=== PATIENT | female | born 1965 | race Caucasian/White ===

== ENCOUNTER 2018-11-12 04:14 | Observation (INO) | payer BC ==
--- OUTSIDE RECORDS SUMMARY | 2018-11-12 04:17 | XMS REPORT ---
:1965 Author Organization eClinicalWorks Care Team Providers Name Role Phone German Fox Provider Role Unavailable Allergies No Known Allergies Problems Problem Type Condition Code Onset Dates Condition Status Problem Uncontrolled other specified E13.65 Active diabetes mellitus without complication, unspecified whether nursing home insulin use Problem Nonalcoholic steatohepatitis K75.81 Active Problem Mild intermittent asthma, J45.20 Active unspecified whether complicated Problem Vitamin B12 deficiency E53.8 Active Problem Vitamin D deficiency E55.9 Active Problem Essential hypertension I10 Active Problem Fatigue, unspecified type R53.83 Active Problem Hypothyroidism, unspecified type E03.9 Active Problem Diverticulitis K57.92 Active Problem Mixed hyperlipidemia E78.2 Active Assessment Vitamin B12 deficiency E53.8 Active Assessment Vitamin D deficiency E55.9 Active Assessment Diverticulitis K57.92 Active Assessment Nonalcoholic steatohepatitis K75.81 Active Assessment Mixed hyperlipidemia E78.2 Active Assessment Hypothyroidism, unspecified type E03.9 Active Assessment Fatigue, unspecified type R53.83 Active Assessment Essential hypertension I10 Active Assessment Mild intermittent asthma, J45.20 Active unspecified whether complicated Assessment Uncontrolled other specified E13.65 Active diabetes mellitus without complication, unspecified whether terminal operator insulin use Medications Medication Code Code Instructions Start End Status Dosage System Date Date Glimepiride ND 34316785917 2 MG Orally Inactive 1 tablet Once a day with breakfast or the first main meal of the day Metformin HCl ND 71617638818 1000 MG Orally Active 1 tablet Twice a day with meals Losartan ND 87070973260 100-25 MG Active 1 tablet Potassium-HCTZ Orally Once a day Liothyronine ND 70901721133 5 MCG Orally Active 1 tablet on Sodium Once a day an empty stomach Rosuvastatin ND 56994266132 10 MG Orally Active 1 tablet Calcium Once a day Synthroid ND 03441206330 175 MCG Orally Active 1 tablet on Once a day an empty stomach in the morning Results No Known Results Summary Purpose eClinicalWorks Submission
--- OUTSIDE RECORDS SUMMARY | 2018-11-12 04:17 | XMS REPORT ---
:1965 Author Organization eClinicalWorks Care Team Providers Name Role Phone German Fox Provider Role Unavailable Allergies No Known Allergies Problems Problem Type Condition Code Onset Dates Condition Status Problem Uncontrolled other specified E13.65 Active diabetes mellitus without complication, unspecified whether [facility] insulin use Problem Nonalcoholic steatohepatitis K75.81 Active Problem Mild intermittent asthma, J45.20 Active unspecified whether complicated Problem Vitamin B12 deficiency E53.8 Active Assessment Diverticulitis K57.92 Active Problem Vitamin D deficiency E55.9 Active Problem Essential hypertension I10 Active Problem Fatigue, unspecified type R53.83 Active Problem Hypothyroidism, unspecified type E03.9 Active Problem Diverticulitis K57.92 Active Problem Mixed hyperlipidemia E78.2 Active Assessment Vitamin D deficiency E55.9 Active Assessment Fatigue, unspecified type R53.83 Active Assessment Nonalcoholic steatohepatitis K75.81 Active Assessment Vitamin B12 deficiency E53.8 Active Assessment Hypothyroidism, unspecified type E03.9 Active Assessment Essential hypertension I10 Active Assessment Mild intermittent asthma, J45.20 Active unspecified whether complicated Assessment Uncontrolled other specified E13.65 Active diabetes mellitus without complication, unspecified whether [facility] insulin use Assessment Mixed hyperlipidemia E78.2 Active Medications Medication Code Code Instructions Start End Status Dosage System Date Date Synthroid [facility] 26428248615 150 MCG Orally March 01, Active 1 tablet Once a day 2017 on an empty stomach in the morning Liothyronine [facility] 07305082059 5 MCG Orally Active 1 tablet Sodium Once a day on an empty stomach Metformin HCl ND 61437093274 1000 MG Orally Active 1 tablet Twice a day with meals Losartan ND 48140827107 100-25 MG Active 1 tablet Potassium-HCTZ Orally Once a day Synthroid [facility] 12707896544 175 MCG Orally Inactive 1 tablet Once a day on an empty stomach in the morning Rosuvastatin [facility] 69062250848 10 MG Orally Active 1 tablet Calcium Once a day Results No Known Results Summary Purpose eClinicalWorks Submission
--- OUTSIDE RECORDS SUMMARY | 2018-11-12 04:17 | XMS REPORT ---
:1965 Author Organization eClinicalWorks Care Team Providers Name Role Phone German Fox Provider Role Unavailable Allergies, Adverse Reactions, Alerts Substance Reaction Event Type Phenergan Info Not Available Drug Allergy Problems Problem Type Condition Code Onset Dates Condition Status Problem Uncontrolled other specified E13.65 Active diabetes mellitus without complication, unspecified whether manager intermediate insulin use Problem Nonalcoholic steatohepatitis K75.81 Active [...] Active diabetes mellitus without complication, unspecified whether manager intermediate insulin use Medications Medication Code Code Instructions Start End Status Dosage System Date Date Losartan [facility] 07742119930 100-25 MG Active 1 tablet Potassium-HCTZ Orally Once a day Synthroid ND 29018235951 175 MCG Orally Active 1 tablet on Once a day an empty stomach in the morning Metformin HCl ND 59099426414 1000 MG Orally Active 1 tablet Twice a day with meals Rosuvastatin ND 11428488639 10 MG Orally Active 1 tablet Calcium Once a day Liothyronine ND 15468780940 5 MCG Orally Active 1 tablet on Sodium Once a day an empty stomach Glimepiride ND 73611379492 2 MG Orally Active 1 tablet Once a day with breakfast or the first main meal of the day Results No Known Results Summary Purpose eClinicalWorks Submission
[2018-11-12 05:20] LABS: Absolute Lymphocytes (CBC) 1.3 K/uL (0.7-4.9); Absolute Monocytes 0.6 K/uL (0.1-1.3); Basophils % 0.3 % (0-1.3); Eosinophils % 0.5 % (0-4.4); Lymphocytes % 7.1 % (15.3-44.8); MPV 8.4 fL (7.6-11.3); RBC Red Blood Cell Count 4.57 M/uL (3.86-4.86)
[2018-11-12 05:39] LABS: Albumin 4.2 g/dL (3.4-5.0); Bilirubin Direct 0.1 mg/dL (0-0.2); Bilirubin Total 0.5 mg/dL (0.2-1.0); Potassium 3.5 mmol/L (3.5-5.1); Protein, Total 8.9 g/dL (6.4-8.2)
[2018-11-12] MEDS ORDERED: FENTANYL CITR 100 MCG/2 ML ONE (06:18)
[2018-11-12 06:59] LABS: Urine Blood NEGATIVE (NEG); Urine Glucose NEGATIVE (NEG); Urine Protein 1+ (NEG); Urine Specific Gravity >1.030 (1.005-1.030); Urine pH 5.5 (5.0-7.0)
--- NOTE | 2018-11-12 07:07 | EDPHYS ---
Physician Documentation [facility] Name: Jane Taylor Age: 53 yrs Sex: Female : 1965 Arrival Date: 11/12/2018 Time: 04:24 Bed 13 Private MD: Jonathan Ortiz ED Physician Shawn Burton HPI: 11/12 20:20 This 53 yrs old Female presents to ER via Ambulatory with complaints of Back gs Pain. 20:20 The patient presents with pain that is acute. The symptoms are located in the low back. gs Onset: The symptoms/episode began/occurred 1 week(s) ago, and became persistent. The pain radiates to the abdomen. Associated signs and symptoms: Pertinent positives: vomiting. Modifying factors: The patient symptoms are alleviated by nothing, the patient symptoms are aggravated by movement. Severity of symptoms: At their worst the symptoms were severe, in the emergency department the symptoms are unchanged. The patient has experienced similar episodes in the past, a few times. The patient has not recently seen a physician. 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 jb4 Historical: - Allergies: 04:24 IV contrast; jb4 04:24 Phenergan; jb4 - Home Meds: 04:24 atorvastatin 10 mg Oral tab 1 tab once daily [Active]; glimepiride 1 mg Oral tab 1 tab jb4 BID [Active]; liothyronine 5 mcg Oral tab 2 tabs once daily [Active]; losartan-hydrochlorothiazide 100-25 mg Oral tab 1 tab once daily [Active]; metformin 1,000 mg Oral tr24 1 tab once daily [Active]; Ventolin HFA 90 mcg/actuation Nebulizer HFAA [Active]; Synthroid 175 mcg Oral tab 1 tab once daily [Active]; OTC Diuretic [Active]; - PMHx: 04:24 Asthma; Cirrhosis; Diabetes - NIDDM; Diverticulitis; Hypertension; Hypothyroidism; jb4 - PSHx: 04:24 Cholecystectomy; jb4 - Immunization history:: Adult Immunizations up to date. - Social history:: Smoking status: Patient/guardian denies using tobacco, Patient/guardian denies using alcohol. - Ebola Screening: : No symptoms or risks identified at this time. ROS: 20:20 All other systems are negative. gs Exam: 20:20 Head/Face: Normocephalic, atraumatic. Eyes: Pupils equal round and reactive to light, gs extra-ocular motions intact. Lids and lashes normal. Conjunctiva and sclera are non-icteric and not injected. Cornea within normal limits. Periorbital areas with no swelling, redness, or edema. ENT: Nares patent. No nasal discharge, no septal abnormalities noted. Tympanic membranes are normal and external auditory canals are clear. Oropharynx with no redness, swelling, or masses, exudates, or evidence of obstruction, uvula midline. Mucous membranes moist. Neck: Trachea midline, no thyromegaly or masses palpated, and no cervical lymphadenopathy. Supple, full range of motion without nuchal rigidity, or vertebral point tenderness. No Meningismus. Chest/axilla: Normal chest wall appearance and motion. Nontender with no deformity. No lesions are appreciated. Cardiovascular: Regular rate and rhythm with a normal S1 and S2. No gallops, murmurs, or rubs. Normal PMI, no JVD. No pulse deficits. Respiratory: Lungs have equal breath sounds bilaterally, clear to auscultation and percussion. No rales, rhonchi or wheezes noted. No increased work of breathing, no retractions or nasal flaring. Back: No spinal tenderness. No costovertebral tenderness. Full range of motion. Skin: Warm, dry with normal turgor. Normal color with no rashes, no lesions, and no evidence of cellulitis. MS/ Extremity: Pulses equal, no cyanosis. Neurovascular intact. Full, normal range of motion. Neuro: Awake and alert, GCS 15, oriented to person, place, time, and situation. Cranial nerves II-XII grossly intact. Motor strength 5/5 in all extremities. Sensory grossly intact. Cerebellar exam normal. Normal gait. 20:20 Constitutional: The patient appears alert, awake, uncomfortable. 20:20 Abdomen/GI: Palpation: moderate abdominal tenderness, in the suprapubic area, right lower quadrant and left lower quadrant. 20:20 Back: CVA tenderness, that is moderate, is noted bilaterally. Vital Signs: 04:24 BP 126 / 76; Pulse 90; Resp 16; Temp 98.0(O); Pulse Ox 100% on R/A; Weight 102.97 kg; jb4 Height 5 ft. 7 in. (170.18 cm) (R); Pain 10/10; 05:00 BP 111 / 72; Pulse 79; Resp 16; Pulse Ox 100% on R/A; jb4 06:00 BP 114 / 63; Pulse 81; Resp 16; Pulse Ox 98% on R/A; jb4 06:50 BP 131 / 75; Pulse 75; Resp 16; Pulse Ox 99% on R/A; Pain 0/10; jb4 07:22 BP 122 / 69; Pulse 68; Resp 16 S; Pulse Ox 97% on R/A; Pain 0/10; jl7 09:00 BP 128 / 71; Pulse 65; Resp 16 S; Pulse Ox 97% on R/A; jl7 04:24 Body Mass Index 35.55 (102.97 kg, 170.18 cm) jb4 MDM: 04:42 Patient medically screened. 20:20 Differential diagnosis: Abdominal Aortic Aneurysm Peptic Ulcer Pyelonephritis gs pancreatitis. Data reviewed: vital signs, nurses notes, lab test result(s), EKG, radiologic studies. Response to treatment: the patient's symptoms have mildly improved after treatment, pt states still not feeling well would feel more comfortable being placed in obs getting tests and pain medication discussed with hospitalist. 11/12 04:44 Order name: Basic Metabolic Panel; Complete Time: 05:56 11/12 04:44 Order name: CBC with Diff 11/12 04:44 Order name: Hepatic Function; Complete Time: 05:56 11/12 04:44 Order name: Lipase; Complete Time: 05:56 11/12 05:57 Order name: Urine Microscopic Only 11/12 06:33 Order name: CBC Smear Scan [facility] 11/12 04:44 Order name: IV Saline Lock; Complete Time: 05:14 11/12 04:44 Order name: Labs collected and sent; Complete Time: 05:14 11/12 04:45 Order name: CT Stone Protocol 11/12 06:54 Order name: Urine Dipstick--Ancillary (enter results); Complete Time: 07:06 [facility] 11/12 06:54 Order name: Urine --Ancillary (enter results); Complete Time: 07:06 [facility] 11/12 08:26 Order name: EKG Electrocardiogram [facility] 11/12 04:45 Order name: EKG - Nurse/Tech; Complete Time: 05:14 11/12 05:57 Order name: Urine Dipstick-Ancillary (obtain specimen); Complete Time: 06:58 gs Administered Medications: 06:14 Drug: fentaNYL (PF) 50 mcg Route: IVP; Site: left antecubital; jb4 07:21 Follow up: Response: No adverse reaction; Pain is decreased jl7 07:21 Drug: NS 0.9% 1000 ml Route: IV; Rate: 125 ml/hr; Site: left antecubital; 7 09:50 Follow up: IV Status: Infusion continued upon admission jl7 Disposition: 11/12/18 07:06 Hospitalization ordered by Alanis Fox for Observation. Preliminary diagnosis is Generalized abdominal pain. - Bed requested for Telemetry/MedSurg (observation). - Status is Observation. jl7 - Condition is Stable. - Problem is new. - Symptoms are unchanged. UTI on Admission? No Signatures: Dispatcher [employer] EDMS Kristian Rivas RN RN jb4 Luz Maria Nolan RN RN jl7 Inessa Nixon RN RN df Shawn Burton MD MD Corrections: (The following items were deleted from the chart) 09:16 07:06 Hospitalization Ordered by Alanis Fox MD for Observation. Preliminary df diagnosis is Generalized abdominal pain. Bed requested for Telemetry/MedSurg (observation). Status is Observation. Condition is Stable. Problem is new. Symptoms are unchanged. UTI on Admission? No. gs 09:49 09:16 11/12/2018 07:06 Hospitalization Ordered by Alanis Fox MD for Observation. jl7 Preliminary diagnosis is Generalized abdominal pain. Bed requested for Telemetry/MedSurg (observation). Status is Observation. Condition is Stable. Problem is new. Symptoms are unchanged. UTI on Admission? No. df
--- NOTE | 2018-11-12 07:07 | ER ---
Nurse's Notes [facility] Name: Jane Taylor Age: 53 yrs Sex: Female : 1965 Arrival Date: 11/12/2018 Time: 04:24 Bed 13 Private MD: Jonathan Ortiz Diagnosis: Generalized abdominal pain Presentation: 11/12 04:24 Presenting complaint: Patient states: I am having lower back pain that started 2 or 3 jb4 days ago. 04:24 Transition of care: patient was not received from another setting of care. Onset of jb4 symptoms was November 08, 2018. Risk Assessment: Do you want to hurt yourself or someone else? Patient reports no desire to harm self or others. Initial Sepsis Screen: Does the patient meet any 2 criteria? No. Patient's initial sepsis screen is negative. Does the patient have a suspected source of infection? No. Patient's initial sepsis screen is negative. Care prior to arrival: None. 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 jb4 Historical: - Allergies: 04:24 IV contrast; jb4 04:24 Phenergan; jb4 - Home Meds: 04:24 atorvastatin 10 mg Oral tab 1 tab once daily [Active]; glimepiride 1 mg Oral tab 1 tab jb4 BID [Active]; liothyronine 5 mcg Oral tab 2 tabs once daily [Active]; losartan-hydrochlorothiazide 100-25 mg Oral tab 1 tab once daily [Active]; metformin 1,000 mg Oral tr24 1 tab once daily [Active]; Ventolin HFA 90 mcg/actuation Nebulizer HFAA [Active]; Synthroid 175 mcg Oral tab 1 tab once daily [Active]; OTC Diuretic [Active]; - PMHx: 04:24 Asthma; Cirrhosis; Diabetes - NIDDM; Diverticulitis; Hypertension; Hypothyroidism; jb4 - PSHx: 04:24 Cholecystectomy; jb4 - Immunization history:: Adult Immunizations up to date. - Social history:: Smoking status: Patient/guardian denies using tobacco, Patient/guardian denies using alcohol. - Ebola Screening: : No symptoms or risks identified at this time. Screenin:24 Abuse screen: Denies threats or abuse. Nutritional screening: No deficits noted. jb4 Tuberculosis screening: No symptoms or risk factors identified. Fall Risk IV access (20 points). Total House Fall Scale indicates No Risk (0-24 pts). Assessment: 04:24 General: Appears in no apparent distress. uncomfortable, Behavior is calm, cooperative, jb4 appropriate for age. Pain: Complains of pain in low back area Pain radiates to posterior aspect of right lateral abdomen, anterior aspect of right lateral abdomen, posterior aspect of left lateral abdomen, anterior aspect of left lateral abdomen, right lower quadrant and left lower quadrant Pain currently is 10 out of 10 on a pain scale. Quality of pain is described as strong continuous pain. Pain began 2-3 days ago. Is continuous. Neuro: Level of Consciousness is awake, alert, obeys commands, Oriented to person, place, time, situation. Cardiovascular: Patient's skin is warm and dry. Respiratory: Airway is patent Respiratory effort is even, unlabored, Respiratory pattern is regular, symmetrical. GI: No signs and/or symptoms were reported involving the gastrointestinal system. : No signs and/or symptoms were reported regarding the genitourinary system. EENT: No signs and/or symptoms were reported regarding the EENT system. Derm: Skin is intact, Skin is pink, warm \T\ dry. Musculoskeletal: Circulation, motion, and sensation intact. 05:15 Reassessment: Pt to CT. jb4 06:00 Reassessment: Patient appears in no apparent distress at this time. Patient and/or jb4 family updated on plan of care and expected duration. Pain level reassessed. Patient is alert, oriented x 3, equal unlabored respirations, skin warm/dry/pink. Patient denies pain at this time. 06:50 Reassessment: Patient appears in no apparent distress at this time. Patient and/or jb4 family updated on plan of care and expected duration. Pain level reassessed. Patient is alert, oriented x 3, equal unlabored respirations, skin warm/dry/pink. Bladder scan shows 43ml of urine in bladder. Patient states feeling better. 07:22 Reassessment: Patient appears in no apparent distress at this time. No changes from jl7 previously documented assessment. Patient and/or family updated on plan of care and expected duration. Pain level reassessed. Patient is alert, oriented x 3, equal unlabored respirations, skin warm/dry/pink. 08:10 Reassessment: Pt c/o increased abdominal pain, Called Dr. Fox and left a message, pt jl7 updated. Vital Signs: 04:24 BP 126 / 76; Pulse 90; Resp 16; Temp 98.0(O); Pulse Ox 100% on R/A; Weight 102.97 kg; jb4 Height 5 ft. 7 in. (170.18 cm) (R); Pain 10/10; 05:00 BP 111 / 72; Pulse 79; Resp 16; Pulse Ox 100% on R/A; jb4 06:00 BP 114 / 63; Pulse 81; Resp 16; Pulse Ox 98% on R/A; jb4 06:50 BP 131 / 75; Pulse 75; Resp 16; Pulse Ox 99% on R/A; Pain 0/10; jb4 07:22 BP 122 / 69; Pulse 68; Resp 16 S; Pulse Ox 97% on R/A; Pain 0/10; jl7 09:00 BP 128 / 71; Pulse 65; Resp 16 S; Pulse Ox 97% on R/A; jl7 04:24 Body Mass Index 35.55 (102.97 kg, 170.18 cm) jb4 ED Course: 04:24 Patient arrived in ED. es 04:24 Kristian Rivas, RN is Primary Nurse. jb4 04:24 Jonathan Ortiz MD is Private Physician. es 04:24 Arm band placed on left wrist. jb4 04:24 Patient has correct armband on for positive identification. Placed in gown. Bed in low jb4 position. Call light in reach. Side rails up X 1. Pulse ox on. NIBP on. 04:28 Shawn Burton MD is Attending Physician. gs 04:29 Triage completed. jb4 05:10 Radiology exam delayed due to IV insertion attempt and/or patient not having kw1 appropriate IV at this time. 05:10 Initial lab(s) drawn, by me, sent to lab. EKG done. Inserted saline lock: 20 gauge in jb4 left antecubital area, using aseptic technique. Blood collected. 05:47 CT Stone Protocol In Process Unspecified. EDMS 07:05 Alanis Fox MD is Hospitalizing Provider. gs 09:48 No provider procedures requiring assistance completed. Patient admitted, IV remains in jl7 place. intact, No redness/swelling at site. Administered Medications: 06:14 Drug: fentaNYL (PF) 50 mcg Route: IVP; Site: left antecubital; [facility] 07:21 Follow up: Response: No adverse reaction; Pain is decreased [facility] 07:21 Drug: NS 0.9% 1000 ml Route: IV; Rate: 125 ml/hr; Site: left antecubital; 7 09:50 Follow up: IV Status: Infusion continued upon admission [facility] Outcome: 07:06 Decision to Hospitalize by Provider. 09:48 Admitted to Tele accompanied by tech, family with patient, via wheelchair, room 216, [facility] with chart, Report called to floor RN 09:48 Condition: stable 09:48 Discharge instructions given to patient, family, Instructed on the need for admit, Demonstrated understanding of instructions. 09:49 Patient left the ED. 7 Signatures: Dispatcher [employer] Brittnee Escamilla James, RN RN jb4 Luz Maria Nolan RN RN jl7 Shawn Burton MD MD Denise Bernard kw1
[2018-11-12 07:09] LABS: Urine Bacteria <20 /HPF (<20); Urine RBC NONE SEEN /HPF (NONE SEEN)
[2018-11-12 07:10] LABS: Urine Amorphous Sediment 2+ /HPF (NONE SEEN); Urine Culture Reflex Order NOT NEEDED
[2018-11-12] MEDS ORDERED: NA CHLORIDE 0.9% 1,000 ML ONE (07:29)
[2018-11-12 07:30] LABS: Blood Morphology Comment NOT SEEN (NOT SEEN); Platelet Estimate ADEQ; Urine White Blood Cell Casts OK
[2018-11-12 09:57] VITALS: BMI 36.8
[2018-11-12] MEDS ORDERED: ONDANSETRON 4 MG/2 ML VIAL IV PRN (10:02)
--- NOTE | 2018-11-12 10:43 | RAD REPORT ---
EXAM DESCRIPTION: CT - Stone Protocol - 11/12/2018 6:09 am CLINICAL HISTORY: 53-year-old female with back pain TECHNIQUE: Axial CT imaging of the abdomen and pelvis was performed. Sagittal and coronal reconstr ucted images were then performed. The CT study is performed according to ALARA (as low as reasonably achievable) or ALARA/IMAGE GENTLY, with automatic adjustment of mA and/or kV according to patient siz guillermo. Performed on: 11/12/2018 at 5:23 AM Comparison: Prior study performed on 07/19/2017. FINDINGS: Lung bases: The lung bases are clear. Liver: The liver is enlarged and measures 23 cm in craniocaudal dimension. No focal hepatic abnormali ties are appreciated on this unenhanced scan. There is diffusely decreased attenuation of the liver c ommonly due to fatty infiltration. Spleen: The spleen is normal is size, configuration and attenuation. No focal splenic abnormalities a re appreciated on this unenhanced scan. Gallbladder and bile duct: The gallbladder is surgically absent. There is no biliary ductal dilatat ion. Pancreas: The pancreas is grossly normal in size and configuration. Adrenal Glands: The adrenal glands are normal in size and configuration. Kidneys: The kidneys are normal in size and configuration. There is no evidence of hydronephrosis. Th ere is no evidence of nephrolithiasis. No focal renal abnormalities are identified. Stomach: The stomach is grossly normal. There is a very small hiatal hernia. Bowel: The bowel gas pattern is non specific and non obstructive. There is occasional colonic diverti culosis. Appendix: The appendix is normal. Free air: There is no evidence of free air. Free fluid: There is no evidence of free fluid. Vasculature: The aorta is normal in caliber and contour. The inferior vena cava is grossly unremarkab le. Lymphadenopathy: No pathologic lymphadenopathy is identified. Bladder: The bladder is incompletely distended on this examination. Reproductive: The uterus is grossly within normal limits. Bones: No acute osseous abnormalities are identified. Soft tissues: No focal soft tissue abnormalities are identified. IMPRESSION: 1. No evidence of acute intra-abdominal or intrapelvic pathology. There is no urinary tr act calcification or obstruction.. 2. Occasional colonic diverticulosis without evidence of diverticulitis. 3. Normal CT of the appendix. 4. Remote cholecystectomy. 5. Hepatomegaly and fatty infiltration of the liver. 6. Small hiatal hernia. Electronically signed by: Alison Mcneal DO 11/12/2018 6:04 AM CDT Due to temporary technical issues with the PACS/Fluency reporting system, reports are being signed by the in house radiologist as a courtesy to ensure prompt reporting. The interpreting radiologist is f ully responsible for the content of the report.
[2018-11-12] MEDS: INSULIN -REGULAR HUMAN 50 UNIT/0.5 ML ML SQ SCH ×3 (11:30→21:00)
[2018-11-12] MEDS: ALBUTEROL 2.5 MG/3 ML NEB SOL NEB SCH ×2 (13:30→19:47)
[2018-11-12] MEDS: FENTANYL CITR 100 MCG/2 ML IV PRN (18:19)
[2018-11-12] MEDS: ATORVASTATIN 10 MG TAB PO SCH (21:13)
--- NOTE | 2018-11-12 23:00 | HP ---
Date of Admission: 11/12/2018 Primary Care Physician: Dr. Fox. Chief Complaint: Abdominal pain. History Of Present Illness: The patient is a 53-year-old female with past medical history of fatty l iver disease, diabetes, hypertension, generalized anxiety disorder, obesity. The patient had been in her usual state of health until 2 days prior to admission when the patient started having sudden ons et of back pain radiating to the abdomen along with some nausea, but no vomiting. The patient also r eports some generalized swelling and edema. The patient states that she is compliant with her medica tions as well as her sodium and fluid-restricted diet. The patient denies any ill contacts. No feve rs or chills. No chest pain or palpitations. The patient's symptoms are constant, moderate, progres sively worsening. The patient came into the ER for further evaluation of her symptoms. Her vital si gns were stable. Her workup showed a white count of 19,000. She did not appear septic. There was n o clear source of infection. Her UA was negative. CT scan of the abdomen did not show any acute rajat nges. The patient was then referred for admission. When seen in the ER, she was awake, alert, orien anthony x3, in some mild distress. Past Medical History: Hypertension, hyperlipidemia, generalized anxiety disorder, diverticulosis, an d fatty liver disease, obesity. Surgical History: Cataract surgery and cholecystectomy. Allergies: THE PATIENT IS ALLERGIC TO PROMETHAZINE. Medications: List reviewed. Family History: Coronary artery disease, hypertension, diabetes in both parents. Pancreatic cancer also runs in the family. Mother also had congestive heart failure and renal disease. Social History: The patient is a former smoker, quit several years ago. Drinks alcohol occasionally . Works 2 jobs, , independent in her activities of daily living. Review of Systems: An 11-point system reviewed, negative except as per HPI. Physical Examination: Vital Signs: Temperature 98, heart rate 90, blood pressure 126/76, respirations 16, O2 100% on room air. General: Awake, alert, oriented x3, in some mild distress. Ill-appearing female, obese, BMI 36.9. HEENT: Normocephalic, atraumatic. PERRLA. EOMI. Moist mucous membranes. Oropharynx is clear. Co njunctivae are anicteric. Neck: Supple. No JVD. Trachea midline. CV: S1, S2. Regular rate and rhythm. Peripheral pulses present. Respiratory: Moving air well bilaterally. No wheezing or stridor. No use of accessory muscles. Gastrointestinal: Abdomen is soft. Mild distention. No ascites. No tenderness to palpation. Vandana l sounds positive. The patient does have some left costovertebral angle tenderness. Extremities: No clubbing, cyanosis. The patient has some pedal edema. Neuro: Cranial nerves 2-12 intact grossly. No focal neurological deficit. Speech is normal. Skin: No rashes. Normal skin turgor. Laboratory Data: UA is negative. WBC 19.1, H and H 14.2 and 42, platelets 318, neutrophils 89%. So dium 138, potassium 3.5, chloride 103, CO2 27, BUN 13, creatinine 1.13, glucose 153, calcium 9, lipas e 82. CT scan of the abdomen and pelvis shows some diverticulosis, but no diverticulitis. No eviden ce of acute intra-abdominal, intrapelvic pathology. No urinary tract calcification or obstruction. Normal CT of the appendix. Remote cholecystectomy, hepatomegaly, and fatty infiltration of the liver . Small hiatal hernia. Assessment And Plan: A 53-year-old female with: 1.Acute generalized abdominal pain radiating to the back, unclear etiology. CT scan does not show a ny stones. May be related to mild distention from ascites. We will continue on pain medications, sy mptomatic treatment. Lipase is also normal. No diverticulitis seen on CT scan. No blood in the sto ol. 2.Fatty liver disease. We will continue with sodium and fluid restriction. 3.Mixed hyperlipidemia, on statin. 4.Essential hypertension, stable. We will resume home medications. 5.Diabetes mellitus type 2, non-insulin requiring. We will continue sliding scale insulin and monit or Accu-Cheks. 6.Obesity, BMI 36.9, counseled. 7.Neutrophilic leukocytosis, unclear etiology. We will monitor. No indications for antibiotics at this time. We will start on Lovenox for DVT prophylaxis. Admit to med/surg and place as observation. /GA Voice ID: [id number]
[2018-11-13] MEDS: ALBUTEROL 2.5 MG/3 ML NEB SOL NEB SCH ×4 (01:30→20:00)
[2018-11-13] MEDS: FENTANYL CITR 100 MCG/2 ML IV PRN ×2 (02:41→18:18)
[2018-11-13] MEDS: LEVOTHYROXINE SOD 0.05 MG TABLET PO SCH (06:07)
[2018-11-13 07:02] LABS: Absolute Lymphocytes (CBC) 2.3 K/uL (0.7-4.9); Absolute Monocytes 0.2 K/uL (0.1-1.3); Basophils % 0.7 % (0-1.3); Eosinophils % 1.3 % (0-4.4); Hematocrit 37.9 % (36.0-45.0); Lymphocytes % 26.4 % (15.3-44.8); MPV 8.3 fL (7.6-11.3); Monocytes % 2.8 % (3.3-12.3); RBC Red Blood Cell Count 4.06 M/uL (3.86-4.86)
[2018-11-13 07:19] LABS: Albumin 3.7 g/dL (3.4-5.0); Bilirubin Total 0.4 mg/dL (0.2-1.0); Potassium 3.3 mmol/L (3.5-5.1); Protein, Total 7.8 g/dL (6.4-8.2)
[2018-11-13] MEDS: INSULIN -REGULAR HUMAN 50 UNIT/0.5 ML ML SQ SCH ×4 (07:30→20:46)
[2018-11-13] MEDS: LOSARTAN/HCTZ 50-12.5 PO SCH (08:42)
--- NOTE | 2018-11-13 11:34 | EKG ---
Test Date: 2018-11-12 Test Time: 05:03:51 Assistant Merchandiser: AYDEN MEASUREMENT RESULTS: Intervals: Rate: 82 OK: 152 QRSD: 80 QT: 402 QTc: 469 [place]: P: 69 OK: 152 QRS: 44 T: 58 INTERPRETIVE STATEMENTS: Normal sinus rhythm Low voltage QRS Nonspecific ST and T wave abnormality Prolonged QT Abnormal ECG Compared to ECG 08/03/2011 07:35:55 Low QRS voltage now present ST (T wave) deviation now present Prolonged QT interval now present Electronically Signed On 11-12-18 10:48:10 CDT by Sj Russell
--- NOTE | 2018-11-13 18:21 | P.PN ---
Subjective Date of Service: 11/13/18 Patient seen and examined at bedside, No family at bedside. Chart reviewed, case discussed with nursing staff. Patient improving - reports better abdominal pain Review of Systems 10-point ROS is otherwise unremarkable Physical Examination - Vital Signs Temperature: 97.2 F Blood Pressure: 100/53 Pulse: 62 Respirations: 18 Pulse Ox (%): 95 - Physical Exam General: Alert, In no apparent distress, Oriented x3 HEENT: Atraumatic, PERRLA, EOMI Neck: Supple, JVD not distended Respiratory: Clear to auscultation bilaterally, Normal air movement Cardiovascular: Regular rate/rhythm, Normal S1 S2 Gastrointestinal: Normal bowel sounds, No tenderness Musculoskeletal: No tenderness Integumentary: No rashes Neurological: Normal speech, Normal tone, Normal affect Lymphatics: No axilla or inguinal lymphadenopathy Assessment And Plan - Plan A 53-year-old female with: Acute generalized abdominal pain radiating to the back, unclear etiology. CT scan does not show any stones. May be related to mild distention from ascites. We will continue on pain medications, symptomatic treatment. Lipase is also normal. No diverticulitis seen on CT scan. No blood in the stool. Improving symptoms. Fatty liver disease. We will continue with sodium and fluid restriction. Mixed hyperlipidemia Continue statin. Essential hypertension, stable. We will resume home medications. Diabetes mellitus type 2, non-insulin requiring. We will continue sliding scale insulin and monitor Accu-Cheks. Obesity, BMI 36.9, counseled. Neutrophilic leukocytosis, unclear etiology. We will monitor. No indications for antibiotics at this time. DVT prophylaxis: Lovenox Disposition: Continue symptomatic management.
[2018-11-13] MEDS: ATORVASTATIN 10 MG TAB PO SCH (20:46)
[2018-11-14] MEDS: ALBUTEROL 2.5 MG/3 ML NEB SOL NEB SCH ×4 (02:00→20:00)
[2018-11-14] MEDS: FENTANYL CITR 100 MCG/2 ML IV PRN ×2 (02:02→05:58)
[2018-11-14] MEDS: LEVOTHYROXINE SOD 0.05 MG TABLET PO SCH (05:33)
[2018-11-14 05:57] LABS: Absolute Lymphocytes (CBC) 2.2 K/uL (0.7-4.9); Absolute Monocytes 0.4 K/uL (0.1-1.3); Absolute Neutrophil 5.1 K/uL (1.8-8.0); Basophils % 0.8 % (0-1.3); Eosinophils % 1.4 % (0-4.4); Lymphocytes % 27.9 % (15.3-44.8); MPV 8.3 fL (7.6-11.3); Monocytes % 4.7 % (3.3-12.3); RBC Red Blood Cell Count 4.21 M/uL (3.86-4.86)
[2018-11-14 06:06] LABS: Albumin 3.7 g/dL (3.4-5.0); Bilirubin Total 0.4 mg/dL (0.2-1.0); Potassium 3.3 mmol/L (3.5-5.1); Protein, Total 7.9 g/dL (6.4-8.2)
[2018-11-14] MEDS: INSULIN -REGULAR HUMAN 50 UNIT/0.5 ML ML SQ SCH ×4 (07:30→21:00)
[2018-11-14] MEDS: LOSARTAN/HCTZ 50-12.5 PO SCH (09:24)
[2018-11-14 13:34] LABS: Urine Appearance CLEAR; Urine Bilirubin NEGATIVE (NEG); Urine Blood NEGATIVE (NEG); Urine Color YELLOW; Urine Glucose NEGATIVE (NEG); Urine Protein NEGATIVE (NEG); Urine Specific Gravity 1.025 (1.005-1.030)
[2018-11-14 13:36] LABS: Urine Microscopic Reflex ORDER UMIC
[2018-11-14 13:44] LABS: Urine Bacteria >50 /HPF (<20); Urine RBC <5 /HPF (NONE SEEN)
[2018-11-14 13:45] LABS: Urine Culture Reflex Order NOT NEEDED; Urine Mucus LIGHT /HPF (NONE SEEN)
[2018-11-14] MEDS ORDERED: D50W 25 GM/50 ML SYRINGE IV PRN (16:22)
[2018-11-14] MEDS ORDERED: GLUCAGON 1 MG/VIAL IM PRN (16:22)
[2018-11-14] MEDS: DOCUSATE NA 100 MG CAP PO PRN (16:47)
--- NOTE | 2018-11-14 18:40 | P.PN ---
Subjective Date of Service: 11/14/18 Subjective: Improving Patient seen and examined at bedside, No family at bedside. Chart reviewed, case discussed with nursing staff. Patient improving - reports better abdominal pain Review of Systems 10-point ROS is otherwise unremarkable Physical Examination - Vital Signs Temperature: 97.7 F Blood Pressure: 108/59 Pulse: 70 Respirations: 16 Pulse Ox (%): 97 - Physical Exam General: Alert, In no apparent distress HEENT: Atraumatic, PERRLA, EOMI Neck: Supple, JVD not distended Respiratory: Clear to auscultation bilaterally, Normal air movement Cardiovascular: Regular rate/rhythm, Normal S1 S2 Gastrointestinal: Normal bowel sounds, No tenderness Musculoskeletal: No tenderness Integumentary: No rashes Neurological: Normal speech, Normal tone, Normal affect Lymphatics: No axilla or inguinal lymphadenopathy Assessment And Plan - Plan A 53-year-old female with: Acute generalized abdominal pain radiating to the back, unclear etiology. CT scan does not show any stones. May be related to mild distention from ascites. We will continue on pain medications, symptomatic treatment. Lipase is also normal. No diverticulitis seen on CT scan. No blood in the stool. Improving symptoms. Fatty liver disease. We will continue with sodium and fluid restriction. Mixed hyperlipidemia Continue statin. Essential hypertension, stable. We will resume home medications. Diabetes mellitus type 2, non-insulin requiring. We will continue sliding scale insulin and monitor Accu-Cheks. Obesity, BMI 36.9, counseled. Neutrophilic leukocytosis, unclear etiology. We will monitor. No indications for antibiotics at this time. DVT prophylaxis: Lovenox Disposition: Continue symptomatic management. Encouraged ambulation. Discontinue IV pain medications as this could also cause constipation. Pending symptomatic improvement
[2018-11-14] MEDS: ATORVASTATIN 10 MG TAB PO SCH (21:51)
[2018-11-15] MEDS: ALBUTEROL 2.5 MG/3 ML NEB SOL NEB SCH ×3 (02:00→13:52)
[2018-11-15 05:37] LABS: Absolute Lymphocytes (CBC) 2.1 K/uL (0.7-4.9); Absolute Monocytes 0.4 K/uL (0.1-1.3); Absolute Neutrophil 6.2 K/uL (1.8-8.0); Eosinophils % 1.7 % (0-4.4); Hematocrit 38.8 % (36.0-45.0); MPV 8.4 fL (7.6-11.3); Monocytes % 4.4 % (3.3-12.3); RBC Red Blood Cell Count 4.17 M/uL (3.86-4.86)
[2018-11-15 05:54] LABS: Albumin 3.8 g/dL (3.4-5.0); Bilirubin Total 0.4 mg/dL (0.2-1.0); Potassium 3.2 mmol/L (3.5-5.1); Protein, Total 8.1 g/dL (6.4-8.2)
[2018-11-15] MEDS: DOCUSATE NA 100 MG CAP PO PRN (06:35)
[2018-11-15] MEDS: LEVOTHYROXINE SOD 0.05 MG TABLET PO SCH (06:35)
[2018-11-15] MEDS: INSULIN -REGULAR HUMAN 50 UNIT/0.5 ML ML SQ SCH ×2 (07:30→11:30)
[2018-11-15 09:03] VITALS: BP 109/62; TEMP 97.6
[2018-11-15] MEDS: LOSARTAN/HCTZ 50-12.5 PO SCH (09:31)
[2018-11-15 10:56] VITALS: O2SAT 95
[2018-11-15] MEDS ORDERED: POTASSIUM CL SA 10 MEQ TAB PO ONE (10:58)
--- NOTE | 2018-11-15 12:09 | P.SSS ---
Patient History Date of Service: 11/15/18 Primary Care Provider: Dr. Ortiz Reason for admission: Abdominal pain History of Present Illness: The patient is a 53-year-old female with past medical history of fatty liver disease, diabetes, hypertension, generalized anxiety disorder, obesity. The patient had been in her usual state of health until 2 days prior to admission when the patient started having sudden onset of back pain radiating to the abdomen along with some nausea, but no vomiting. The patient also reports some generalized swelling and edema. The patient states that she is compliant with her medications as well as her sodium and fluid-restricted diet. The patient denies any ill contacts. No fevers or chills. No chest pain or palpitations. The patient's symptoms are constant, moderate, progressively worsening. The patient came into the ER for further evaluation of her symptoms. Her vital signs were stable. Her workup showed a white count of 19,000. She did not appear septic. There was no clear source of infection. Her UA was negative. CT scan of the abdomen did not show any acute changes. The patient was then referred for admission. When seen in the ER, she was awake, alert, oriented x3 , in some mild distress. Allergies promethazine HCl [From Phenergan] Allergy (Intermediate, Verified 11/12/18 10:24 ) forgetfulness IV contrast Allergy (Uncoded 11/12/18 10:24) Hives Home Medications: Atorvastatin Calcium [Lipitor] 10 mg PO DAILY 04/22/14 Levothyroxine [Synthroid] 50 mcg PO DAILY 04/22/14 Losartan/Hydrochlorothiazide [Losartan-Hctz 100-25 mg Tab] 1 each PO DAILY 04/22 Albuterol Inhaler [Ventolin Inhaler] 2 puff IH Q6H PRN 11/12/18 Metformin HCl [Glucophage] 500 mg PO BIDWM 11/12/18 - Past Medical/Surgical History Has patient received pneumonia vaccine in the past: Yes Diabetic: Yes -: high cholesterol -: asthma -: COPD -: hypertension -: non-alcoholic liver cirrhosis -: hypothyroidism -: cataract surgery -: cholecystectomy - Social History Smoking Status: Former smoker Alcohol use: No CD- Drugs: No Caffeine use: Yes Place of Residence: Home Review of Systems 10-point ROS is otherwise unremarkable Physical Examination - Vital Signs Temperature: 97.6 F Blood Pressure: 109/62 Pulse: 66 Respirations: 20 Pulse Ox (%): 95 - Physical Exam General: Alert, In no apparent distress, Oriented x3, Obese HEENT: Atraumatic, PERRLA, Mucous membr. moist/pink, EOMI, Sclerae nonicteric Neck: Supple, 2+ carotid pulse no bruit, No LAD, Without JVD or thyroid abnormality Respiratory: Clear to auscultation bilaterally, Normal air movement Cardiovascular: Regular rate/rhythm, Normal S1 S2 Gastrointestinal: Normal bowel sounds, No tenderness Musculoskeletal: No tenderness Integumentary: No rashes Neurological: Normal gait, Normal speech, Normal strength at 5/5 x4 extr, Normal tone, Normal affect Lymphatics: No axilla or inguinal lymphadenopathy Treatment Summary: Patient was admitted for acute generalized abdominal pain that was radiating to her back. CT scan did not show any stones or any acute abnormality. Patient does have a history of fatty liver disease that she sees a childcare attendant for. Her LFTs were slightly elevated. This abdominal pain may have been related to mild distention from ascites. She was started on pain medications and provide symptomatic treatment. Her lipase remained normal. She was given IV fluids. She was encouraged ambulation and she was given Colace to help with bowel movements. She did have 1 small bowel movement prior to discharge. Her IV pain medications were also discontinued due to constipation. Prior to discharge , she was symptom-free, tolerating a regular diet, ambulating without any problems. During the hospitalization, she did complain regarding foul order in her urine. Urinalysis was done but the urine sample seemed to be dirty. But because she is symptomatic, we will go ahead and treat with a 3 day course of Bactrim. She was recommended to follow up with , her childcare attendant for outpatient management. She states that she has not seen him in a few years now. Recommended to avoid hepatotoxic medications or any other kyco-rhb-gwboyna medications at this time. She was started in continue on her home statin, blood pressure medications. She otherwise remained stable throughout the stay. - Disposition Discharge Date: 11/15/18 Disposition: ROUTINE DISCHARGE Condition: GOOD Patient Discharge Instructions: Please follow up with the primary care physician in 2-3 days. Please follow up with your GI specialist, Dr. Douglas in 1 -2 weeks. New medications: Colace constipation, Bactrim for urinary tract infection. Please return to the emergency room for worsening symptoms Diet: Soft as tolerated Activity: Ad avel Time Spent Managing Pts Care (In Minutes): 55
== END 2018-11-15 14:20 | disposition home or self-care (01) ==
LOC: ER 04:14 → ERHOLD 08:52 → 2ND 09:37
PROVIDERS: ADMIT Family Medicine; ATTEND Family Medicine
DX: R10.84 Generalized abdominal pain (principal); K76.0 Fatty (change of) liver, not elsewhere classified; N39.0 Urinary tract infection, site not specified; E78.2 Mixed hyperlipidemia; D72.828 Other elevated white blood cell count; I10 Essential (primary) hypertension; E66.9 Obesity, unspecified; E11.8 Type 2 diabetes mellitus with unspecified complications; E03.9 Hypothyroidism, unspecified; J45.909 Unspecified asthma, uncomplicated; Z91.041 Radiographic dye allergy status; Z68.36 Body mass index [BMI] 36.0-36.9, adult; Z71.3 Dietary counseling and surveillance; Z87.891 Personal history of nicotine dependence
CPT/HCPCS: 36415; 74176; 76377; 80048; 80053; 80076; 81003; 81015; 81025; 82962; 83690; 85025; 93005; 94640; 94760; 96361; 96374; 99285; G0378; J2405; J3010; J7030

== ENCOUNTER 2020-03-21 02:08 | Emergency (ER) | payer BC ==
--- OUTSIDE RECORDS SUMMARY | 2020-03-21 02:10 | XMS REPORT | Clinical Summary ---
:1965 Author Organization [facility] Address [address] [place] [id number] Care Team Providers Name Role Phone Asked, No Pcp Primary Care Provider Unavailable Allergies Active Allergy Reactions Severity Noted Date Comments Iodine Hives Medium 04/01/2019 Metformin GI Bleeding 04/01/2019 It gives me gema lly bad stomach issues and pain. Promethazine Anxiety Medium 04/01/2019 It made me kick , it was a really strange reactio n. Medications No known medications Active Problems Problem Noted Date Liver disease Encounters Date Type Specialty Care Team Description 04/03/2019 Hospital Encounter Radiology Collin Maria Non alcoholic steatohepatitis 03/22/2019 Transcribe Orders Radiology Collin Maria Nona lcoholic steatohepatitis (Primary Dx) after 03/21/2019 Social History Tobacco Use Types Packs/Day Years Used Date Current Every Day Smoker Cigarettes 0.25 5 Smokeless Tobacco: Never Used Alcohol Use Drinks/Week oz/Week Comments Not Currently Sex Assigned at Date Recorded Not on file Job Start Date Occupation Industry Not on file Not on file Not on file Travel History Travel Start Travel End No recent travel history available. Last Filed Vital Signs Vital Sign Reading Time Taken Comments Blood Pressure 125/68 04/03/2019 12:30 PM CDT Pulse 56 04/03/2019 12:30 PM CDT Temperature 36.3 C (97.3 F) 04/03/2019 12:45 PM CDT Respiratory Rate 18 04/03/2019 2:30 PM CDT Oxygen Saturation 95% 04/03/2019 12:30 PM CDT Inhaled Oxygen Concentration - - Weight 95.3 kg (210 lb) 04/03/2019 9:35 AM CDT Height 170.2 cm (5' 7") 04/03/2019 9:35 AM CDT Body Mass Index 32.89 04/03/2019 9:35 AM CDT Plan of Treatment Health Maintenance Due Date Last Done Comments CERVICAL CANCER SCREENING 1987 BREAST CANCER SCREENING 2016 COLONOSCOPY SCREENING 2016 SHINGLES VACCINES (#1) 2016 INFLUENZA VACCINE 04/07/2020 Procedures Procedure Name Priority Date/Time Associated Diagnosis Comme nts SURGICAL PATHOLOGY Routine 04/03/2019 12:24 Resul ts for this REQUEST PM CDT procedure are i n the results section. POC GLUCOSE Routine 04/03/2019 11:52 Results for this AM CDT procedure are i n the results section. IR TRANSJUGULAR Routine 04/03/2019 11:19 Nonalcoholic Results for this LIVER BIOPSY AM CDT steatohepatitis procedure ar e in the results section. POC GLUCOSE Routine 04/03/2019 9:57 Results for this AM CDT procedure are i n the results section. after 03/21/2019 Results Surgical pathology request (04/03/2019 12:24 PM CDT) [facility] DEPARTMENT OF PATHOLOGY AND GENOMIC MEDICINE Surgical pathology See link below [facility] DEPARTMENT OF report for PDF Lab PATHOLOGY AND Report GENOMIC MEDICINE Result status This is Final [facility] DEPARTMENT OF Report for PATHOLOGY AND [id number] GENOMIC MEDICINE Specimen Performing Organization Address City/[facility]/Zipcode Phone Number [facility] DEPARTMENT OF PATHOLOGY AND [address] [place] [phone] GENOMIC MEDICINE POC glucose (04/03/2019 11:52 AM CDT)Only the most recent of2 resultswithin the time period is included. Pathologist Sig nature POC glucose 148 (H) 65 - 99 mg/dL [facility] Comment: HOSPITAL Meter ID: [id number] [employer]: Kristal Phan Specimen Performing Organization Address City/State/Zipcode Phone Number [facility] DEPARTMENT OF PATHOLOGY AND [address] [place] [phone] GENOMIC MEDICINE [address] [address] IR Transjugular Liver Biopsy (04/03/2019 11:19 AM CDT) Specimen Narrative Performed At PROCEDURE: RADIANT Transjugular liver biopsy with portal ve nous pressure measurements Performing Radiologist: Boom Barboza MD Assistants: None Pre Procedure Diagnosis: K75.81 Nonalcoholic steatohepatitis (BLAINE H), K75.81 Post Procedure Diagnosis: K75.81 Nonalcoholic steatohepatitis (BLAINE H), K75.81 Indication: Elevated liver function tests Complications: No immediate post procedure complication s. IMPRESSION: 1. Technically successful transjugular liver biopsy from the right hepatic vein. 2. Portal venous pressure measurements : Right A trium: 8 mmHg Free He patic: 18 mmHg Wedge H epatic: 24 mmHg 3. Venogram of the right hepatic ve in is within normal limits. 4. The right hepatic vein is patent and compressibl e on pre-procedure ultrasound. PLAN: The patient will be observed in the PACU for approxima tely 2 hours to monitor vital signs prior to discharge. PROCEDURE SUMMARY: 1. Venous access with ultrasound kaylen nce 2. Right hepatic venogram 3. Right atrial as well as hepatic/por yulia venous pressure measurements 4. Transjugular liver biopsy PROCEDURE DETAILS: Pre-procedure: Comparison studies: None Written and informed consent for the procedure and mon itored conscious sedation was obtained from the patient. Prophylactic antibiotics: None Preparation: The right neck was prepared and draped using all elements of maximal sterile barrier technique including sterile gloves, sterile gown, catheter, mask, large sterile sheet, sterile ult rasound probe cover, hand hygiene and cutaneous antisepsis using chlorhexidine. Anesthesia/Sedation: Level of anesthesia: Moderate Sedation Medications used: Fentanyl and Versed, 1 % lidocaine Anesthesia administration: Pulse oximetry, heart rate, and blood pressure were continuously monitored by a radiology nu rse and the performing provider. Duration of intraservice [id number] an esthesia/sedation: 28 minutes Access: Local anesthesia was administered. The right internal jugular vein was evaluated with preprocedure ultrasound and noted to be patent. Real-time ultrasound was used to visualize needle entry into the vessel and a permanent image was stored. A 0.035 inch Amplatz was advanced into the inferior vena cava and a n image was archived. Access technique: 5 [place] micropuncture set Transjugular liver biopsy: A 10 [place] sheath was advanced over the Amplatz wire and positioned within the right atrium. Using a 5 [place] directional catheter, the right hepatic vein was accessed and a venogram was p erformed confirming positioning. Free, portal mushtaq ous, and right atrial pressures were then obtained. The sheath was th en advanced into the right hepatic vein through which a biopsy needle k it was advanced and 4 x 18-gauge core biopsies were obta ined. Biopsy equipment: RawFlow Biopsy needle gauge: 18 gauge Closure: The catheters and wires were then removed and hemostas is was achieved with manual compression. Access site closure technique: Manual co mpression Contrast: Contrast agent: CO2 Contrast volume: N/A Radiation dose: Reference air kerma: 281 mGy Additional details: Additional description of procedure: N/A Additional findings: N/A Equipment details: N/A Estimated blood loss: Less than 10 cc [facility]-[id number] Procedure Note [facility], Radiology Results Incoming - 04/03/2019 2:01 PM CDT PROCEDURE: Transjugular liver biopsy with portal ve nous pressure measurements Performing Radiologist: Boom Barboza MD Assistants: None Pre Procedure Diagnosis: K75.81 Nonalcoholic steatohepatitis (BLAINE H), K75.81 Post Procedure Diagnosis: K75.81 Nonalcoholic steatohepatitis (BLAINE H), K75.81 Indication: Elevated liver function tests Complications: No immediate post procedure complication s. IMPRESSION: 1. Technically successful transjugular liver biopsy from the right hepatic vein. 2. Portal venous pressure measurements: Right Atrium: 8 mm Hg Free Hepatic: 18 m mHg Wedge Hepatic: 24 mmHg 3. Venogram of the right hepatic vein is within normal limits. 4. The right hepatic vein is patent an d compressible on pre-procedure ultrasound. PLAN: The patient will be observed in the PACU for approximately 2 hours to monitor vital signs prior to discharge. PROCEDURE SUMMARY: 1. Venous access with ultrasound guidan ce 2. Right hepatic venogram 3. Right atrial as well as hepatic/port al venous pressure measurements 4. Transjugular liver biopsy PROCEDURE DETAILS: Pre-procedure: Comparison studies: None Written and informed consent for the pro cedure and monitored conscious sedation was obtained from the patient. Prophylactic antibiotics: None Preparation: The right neck was prepare d and draped using all elements of maximal sterile barrier technique including sterile gloves, sterile gown, catheter, mask, large sterile sheet, sterile ultrasound probe cover, hand hygiene and cutaneous antisepsis using chlorhexidine. Anesthesia/Sedation: Level of anesthesia: Moderate Sedation Medications used: Fentanyl and Versed, 1 % lidocaine Anesthesia administration: Pulse oximetr y, heart rate, and blood pressure were continuously monitored by a radiology nurse and the performing provider. Duration of intraservice [id number] an esthesia/sedation: 28 minutes Access: Local anesthesia was administered. The r ight internal jugular vein was evaluated with preprocedure ultrasound and noted to be patent. Real-time ultrasound was used to visualize needle entry into the vessel and a permanent image was stored. A 0.035 inch Amplatz was advanced into the inferior v ric cava and an image was archived. Access technique: 5 [place] micropuncture set Transjugular liver biopsy: A 10 [place] sheath was advanced over the Amplatz wire and positioned within the right atrium. Using a 5 [place] directional catheter, the right hepatic vein was accessed and a venogram was performed confirming positioning. Free, portal venous, and ri ght atrial pressures were then obtained. The sheath was then advanced into the right hepatic vein through which a biopsy needle kit was advanced and 4 x 18-gauge core biopsies were obtained. Biopsy equipment: Dextera Biopsy needle gauge: 18 gauge Closure: The catheters and wires were then remove d and hemostasis was achieved with manual compression. Access site closure technique: Manual co mpression Contrast: Contrast agent: CO2 Contrast volume: N/A Radiation dose: Reference air kerma: 281 mGy Additional details: Additional description of procedure: N/A Additional findings: N/A Equipment details: N/A Estimated blood loss: Less than 10 cc [facility]-[id number] Performing Organization Address City/State/Zipcode Phone Number [employer] [address] [place] [address] after 03/21/2019 Advance Directives For more information, please contact: [phone] Type Date Recorded Patient Core Shaper Top Explanati on Advance Directives, Living Will and Medical Power of Folder Seamer
--- OUTSIDE RECORDS SUMMARY | 2020-03-21 02:10 | XMS REPORT | Continuity of Care Document ---
:1965 Author Organization [facility] t Address [address] [place] [address] Care Team Providers Name Role Phone Asked, Pcp Primary Care Physician Unavailable Candace RIVERA, S. Attending Clinician Payers Payer Name Policy Type Policy Number Effective Date Expiration Date S mnaolo BCBSBCBS xxxxxxxxxxxx 2017 [place] CHOICE 00:00:00 [facility] PPO/FEDERAL EMPL PPOxxxxxxxxxxx 2017-Pres entPPO Problems Condition Condition Condition Status Onset Resolution Last Treating Co mments Source Name Details Category Date Date Treatment Clinician Date Uncontroll Uncontroll Diagnosis Active [facility] other [facility] - specified specified Chad alexis diabetes diabetes l mellitus mellitus Outpat i without without ent complicati complicati Cl inics on, on, unspecifie unspecifie d 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 d 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 insulin use use Nonalcohol Nonalcohol Diagnosis Active [facility] [place] moria titis titis l Outpati ent Clinics Mild Mild Diagnosis Active [facility] intermitte intermitte Ceci kes - nt asthma, nt asthma, Me moria unspecifie unspecifie l d whether d whether Outp ati complicate complicate en t d d Clinics Vitamin Vitamin Diagnosis Active [facility] t B12 B12 [facility] - deficiency deficiency Me moria l Outpati ent Clinics Vitamin D Vitamin D Diagnosis Active [facility] deficiency deficiency Ceci kes - [facility] l Outpati ent Clinics Essential Essential Diagnosis Active [facility] hypertensi hypertensi Ceci kes - on on [facility] l Outpati ent Clinics Fatigue, Fatigue, Diagnosis Active [facility] unspecifie unspecifie Ceci kes - d type d type [facility] l Outpati ent Clinics Hypothyroi Hypothyroi Diagnosis Active [facility] dism, dism, [facility] - unspecifie unspecifie Me moria d type d type l [facility] ent Clinics Diverticul Diverticul Problem Active [facility] itis itis [facility] - Memoria l [facility] ent Clinics Mixed Mixed Diagnosis Active [facility] hyperlipid hyperlipid Ceci kes - emia emia Memoria [facility] ent Clinics 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 Prometha Propensi Active Anxiety It made [place] zine ty to 04-01 me kick, Methodi adverse 00:00: it was a st reaction 00 really s to strange drug reaction. Phenerga Adverse Active Info Not [facility] Social History Social Habit Start Date Stop Date Quantity Comments Source History of tobacco Cigarette Smoker [place] use [facility] Sex Assigned At [place] [facility] Cigarettes smoked 2019-04-03 2019-04-03 [place] current (pack per 00:00:00 00:00:00 Methodi ) - Reported Cigarette 2019-04-03 2019-04-03 [place] pack-years 00:00:00 00:00:00 [facility] Alcohol intake 2019-04-03 2019-04-03 Ex-drinker [place] 00:00:00 00:00:00 (finding) [facility] Smoking Status Start Date Stop Date Source Current every day smoker 2019-04-03 00:00:00 [place] [facility] Medications Ordered Filled Start Stop Current Ordering Indication Dosage Frequency Signature Comments Components Source Medication Medication Date Date Medication? Clinician (SIG) Name Name Synthroid Synthroid Yes German [address] [facility] 7-26 [place] on an [facility] - 00:00: empty Memoria 00 stomach in l [facility] Losartan Losartan Yes German [address] Potassium-H Potassium-H Fox kes - CTZ CTZ Memoria l [facility] ent Clinics Synthroid Synthroid Yes German [address] [facility] [place] on an [facility] - empty Memoria stomach in l the [facility] morning ent Clinics Metformin Metformin Yes German [address] [facility] [address] HCl HCl Fox with meals [facility] - [facility]oria l [facility] ent Clinics Rosuvastati Rosuvastati Yes German [address] n Calcium n Calcium Fox Luke s - Memoria l [facility] ent Clinics Liothyronin Liothyronin Yes German [address] e Sodium e Sodium [place] on an [facility] - empty Memoria stomach l [facility] ent Clinics Vital Signs Vital Name Observation Time Observation Value Comments Source Respiratory rate 2019-04-03 14:30:00 18 /min Roldan Pérez Body temperature 2019-04-03 12:45:00 36.28 Carlee Roldan Caist Systolic blood 2019-04-03 12:30:00 125 mm[Hg] [place] [facility] pressure Diastolic blood 2019-04-03 12:30:00 68 mm[Hg] Radha martinez [facility] pressure Heart rate 2019-04-03 12:30:00 56 /min Yandel Pérez Oxygen saturation in 2019-04-03 12:30:00 95 /min Yandel Pérez Arterial blood by Pulse oximetry Body height 2019-04-03 09:35:00 170.2 cm Yandel Pérez Body weight 2019-04-03 09:35:00 95.255 kg Yandel Pérez BMI 2019-04-03 09:35:00 32.89 kg/m2 Yandel Pérez Procedures Procedure Date / Time Performed Performing Clinician [facility] e SURGICAL PATHOLOGY 2019-04-03 12:24:00 Collin Maria REQUEST POC GLUCOSE 2019-04-03 11:52:00 Collin Maria Oh [facility]odist IR TRANSJUGULAR LIVER 2019-04-03 11:19:57 Collin Maria BIOPSY POC GLUCOSE 2019-04-03 09:57:00 Collin Maria Oh thodist Plan of Care Planned Activity Planned Date Details Comments Source Future Scheduled 2020-04-07 INFLUENZA VACCINE [place] [facility] Test 00:00:00 [code = INFLUENZA VACCINE] Future Scheduled 2016 BREAST CANCER [facility] thodist Test 00:00:00 SCREENING [code = BREAST CANCER SCREENING] Future Scheduled 2016 COLONOSCOPY SCREENING Ho michelle [facility] Test 00:00:00 [code = COLONOSCOPY SCREENING] Future Scheduled 2016 SHINGLES VACCINES [place] [facility] Test 00:00:00 (#1) [code = SHINGLES VACCINES (#1)] Future Scheduled 1987 Screening for Yandel Veliz thodist Test 00:00:00 malignant neoplasm of cervix (procedure) [code = 650389008] Encounters Start End Encounter Admission Attending Care Care Encounter Source Date/Time Date/Time Type Type Clinicians Facility Department ID 2018-03-01 2018-03-01 [facility] [id number] [address] 13:15:00 13[facility]15:00 [facility] 2017-11-30 2017-11-30 [facility] [id number] 13:15:00 13:15:00 [employer] [facility] 2017-11-06 2017-11-06 [facility] [id number] 13:30:00 13:30:00 [employer] [facility] Results Test Description Test Time Test Comments Results Result Comments Source Surgical pathology request 2019-04-06 14:27:00 Test Item Value Reference Range Interpretation Comme nts Case number (test code = [id number]) [id number] Surgical pathology report (test code = See link below for PDF Lab R eport 2257) Result status (test code = 0917113) This is Final Report for [id number] [place] [facility] Transjugular Liver Ohsgcg2016-20-33 13:58:04Hm Interface, Radiology Results 04/03/2019 2:01 PM CDTPROCEDURE:Transjugular liver biopsy with portal venous pressure measurementsPerforming Radiologist:Boom Barboza MD Assistants:NonePre Procedure Diagnosis:K75.81 Nonalcoholic steatohepatitis (STEVENS), K75.81Post Procedure Diagnosis:K75.81 Nonalcoholic steatohepatitis (STEVENS), K75.81Indication:Elevated liver function testsComplications:No immediate post procedure complications.IMPRESSION:1. Technically successful transjugular liver biopsy from the right hepatic vein.2. Portal venous pressure measurements: Right Atrium: 8 mmHg Free Hepatic: 18 mmHg Wedge Hepatic: 24 mmHg3. Venogram of the right hepatic vein is within normal limits.4. The right hepatic vein is patent and compressible on pre-procedure ultrasound.PLAN:The patient will be observed in the PACU for approximately 2 hours to monitor vital signs prior to discharge. PROCEDURE SUMMARY:1. Venous access with ultrasound guidance2. Right hepatic venogram3. Right atrial as well as hepatic/portal venous pressure measurements4. Transjugular liver biopsyPROCEDURE DETAILS:Pre-procedure:Comparison studies: NoneWritten and informed consent for the procedure and monitored conscious sedation was obtained from the patient.Prophylactic antibiotics: NonePreparation: The right neck was prepared and draped using all elements of maximal sterile barrier technique including sterile gloves, sterile gown, catheter, mask, large sterile sheet, shala rile ultrasound probe cover, hand hygiene and cutaneous antisepsis using chlorhexidine.Anesthesia/Sedation:Level of anesthesia: Moderate SedationMedications used: Fentanyl and Versed, 1% lidocaineAnesthesia administration: Pulse oximetry, heart rate, and blood pressure were continuously monitored by aradiology nurse and the performing provider.Duration of intraservice [id number] anesthesia/sedation: 28 minutesAccess:Local anesthesia was administered. The right internal jugular vein was evaluated with preprocedure ultrasound and noted to be patent. Real-time ultrasound was used to visualize needle entry into the vessel and a permanent image was stored. A 0.035 inch Amplatz was advanced into the inferior vena cava and an image was archived.Access technique:5 [place] micropuncture setTransjugular liver biopsy:A 10 [place] sheath was advanced over the Amplatz wire and positioned within the right atrium. Using a 5 [place] directional catheter, the right hepatic vein was accessed and a venogram was performed confirming positioning. Free, portal venous, and right atrial pressures were then obtained.The sheath was then advanced into the right hepatic vein through which a biopsy needle kit was advanced and 4 x 18-gauge core biopsies were obtained.Biopsy equipment: DexteraBiopsy needle gauge: 18 gaugeClosure:The catheters and wires were then removed and hemostasis was achieved with manual compression.Access site closure technique: Manual compressionContrast:Contrast agent: [id number] volume: N/AR adiation dose:Reference air kerma: 281 mGyAdditional details:Additional description of procedure: N/AAdditional findings: N/AEquipment details: N/AEstimated blood loss: Less than 10 [facility]-[id number] Medical Center doxktiv2013-47-61 11:53:52 Test Item Value Reference Range Interpretation Comments POC glucose (test code = 148 mg/dL 65-99 H Met er ID: [id number]) [id number] tor: Kristal Phan Lab Interpretation (test Abnormal code = 94097-1) Yandel Pérez
[2020-03-21] MEDS ORDERED: ONDANSETRON 4 MG (ODT) TAB ONE (03:20)
[2020-03-21 03:50] LABS: Absolute Lymphocytes (CBC) 1.5 K/uL (0.7-4.9); Hematocrit 42.6 % (36.0-45.0); MPV 8.7 fL (7.6-11.3); RBC Red Blood Cell Count 4.61 M/uL (3.86-4.86)
[2020-03-21 03:58] LABS: Potassium 3.9 mmol/L (3.5-5.1)
[2020-03-21 04:31] LABS: Urine Appearance CLEAR; Urine Bilirubin NEGATIVE (NEG); Urine Blood NEGATIVE (NEG); Urine Color YELLOW; Urine Glucose 1+ (NEG); Urine Protein TRACE (NEG); Urine Specific Gravity >=1.030 (1.005-1.030); Urine Urobilinogen 0.2 mg/dL (0.2-1.0); Urine pH 5.5 (5.0-7.0)
[2020-03-21 04:53] LABS: Urine Microscopic Reflex ORDER UMIC
[2020-03-21 04:56] LABS: Urine Bacteria 20-50 /HPF (<20); Urine Culture Reflex Order REFLEXED; Urine Mucus 2+ /HPF (NONE SEEN); Urine RBC <5 /HPF (NONE SEEN)
--- NOTE | 2020-03-21 05:50 | EDPHYS ---
Physician Documentation [facility] Name: Jane Cordova Age: 54 yrs Sex: Female : 1965 Arrival Date: 03/21/2020 Time: 02:15 Bed 5 Private MD: ED Physician Jett James HPI: 03/21 03:01 This 54 yrs old Female presents to ER via Ambulatory with complaints of Fever.pkl 03:01 The patient or guardian reports cough, described as mild, with productive sputum, that pkl is yellow, flu symptoms, low-grade fever. Onset: The symptoms/episode began/occurred yesterday. Associated signs and symptoms: Pertinent positives: nausea, loss of taste and smell. 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 - Social history:: Smoking status: Patient reports the use of cigarette tobacco products, Patient uses alcohol. ROS: 03:01 Eyes: Negative for injury, pain, redness, and discharge. pkl 03:01 ENT: Positive for sore throat. 03:01 Neck: Negative for stiffness. 03:01 Cardiovascular: Negative for chest pain. 03:01 Respiratory: Positive for cough, with yellow sputum, Negative for shortness of breath. 03:01 Abdomen/GI: Positive for nausea, Negative for abdominal pain, nausea, vomiting, and diarrhea. 03:01 Back: Negative for pain at rest. 03:01 : Negative for urinary symptoms. 03:01 MS/extremity: Negative for acute changes. 03:01 Skin: Negative for rash. 03:01 Neuro: Negative for altered mental status. Exam: 03:04 Head/Face: Normocephalic, atraumatic. Eyes: Pupils equal round and reactive to light, pkl extra-ocular motions intact. Lids and lashes normal. Conjunctiva and sclera are non-icteric and not injected. Cornea within normal limits. Periorbital areas with no swelling, redness, or edema. ENT: Nares patent. No nasal discharge, no septal abnormalities noted. Tympanic membranes are normal and external auditory canals are clear. Oropharynx with no redness, swelling, or masses, exudates, or evidence of obstruction, uvula midline. Mucous membranes moist. Neck: Trachea midline, no thyromegaly or masses palpated, and no cervical lymphadenopathy. Supple, full range of motion without nuchal rigidity, or vertebral point tenderness. No Meningismus. Chest/axilla: Normal chest wall appearance and motion. Nontender with no deformity. No lesions are appreciated. 03:04 Cardiovascular: Rate: normal, Rhythm: regular. 03:04 Respiratory: the patient does not display signs of respiratory distress, Respirations: normal, Breath sounds: are clear throughout. 03:04 Abdomen/GI: Bowel sounds: normal, Palpation: abdomen is soft and non-tender, in all quadrants. 03:04 Back: Exam negative for acute changes. 03:04 : Exam negative for acute changes. 03:04 Musculoskeletal/extremity: Exam is negative for acute changes. 03:04 Skin: Exam negative for rash. 03:04 Neuro: Orientation: is normal, Mentation: is normal, Cranial nerves: grossly normal, Motor: is normal. Vital Signs: 02:29 BP 145 / 75; Pulse 85; Resp 18; Temp 98.7; Pulse Ox 97% ; Weight 99.79 kg; Height 5 ft. wh 7 in. (170.18 cm); 03:50 BP 141 / 67; Pulse 70; Resp 18; Pulse Ox 96% on R/A; wh 05:19 BP 125 / 66; Pulse 61; Resp 18; Pulse Ox 97% on R/A; wh 06:33 BP 140 / 68; Pulse 61; Resp 18; Pulse Ox 97% on R/A; wh 02:29 Body Mass Index 34.46 (99.79 kg, 170.18 cm) MDM: 02:16 Patient medically screened. pkl 05:46 Data reviewed: vital signs, nurses notes, lab test result(s), radiologic studies, CT pkl scan. ED course: Discussed lab. and CT Scan results with patient. Advised to stay home until Covid 19 results available. Return if necessary. Patient understood instructions. 03/21 02:58 Order name: CBC with Diff; Complete Time: 04:18 pkl 03/21 02:58 Order name: Chem 7; Complete Time: 04:18 pkl 03/21 02:58 Order name: Strep pkl 03/21 02:58 Order name: COVID-19 pkl 03/21 03:07 Order name: UA; Complete Time: 05:40 pkl 03/21 04:01 Order name: Throat Culture EDMS 03/21 03:00 Order name: CT Chest Wo Con pkl 03/21 04:54 Order name: Urine Microscopic Only; Complete Time: 05:40 EDMS 03/21 04:58 Order name: Urine Culture EDMS Administered Medications: 03:20 Drug: Zofran (Ondansetron) 4 mg Route: PO; 03:50 Follow up: Response: No adverse reaction; Nausea is decreased 06:20 Drug: Rocephin - (cefTRIAXone) 1 grams Route: IVPB; Infused Over: 30 mins; Site: right antecubital; 06:32 Follow up: Response: No adverse reaction; IV Status: Completed infusion Disposition: 03/21/20 05:49 Discharged to Home. Impression: Right lower lobe pneumonia. - Condition is Stable. - Prescriptions for Zithromax Z- Rg 250 mg Oral Tablet - take 1 tablet by ORAL route as directed for 5 days Day 1 - take two (2) tablets one time. Day 2, 3, 4 , 5 take one (1) tablet once daily.; 6 tablet. Guaifenesin AC 10- 100 mg/5 mL Oral Liquid - take 10 milliliters by ORAL route every 8 hours As needed; 120 milliliter. - Medication Reconciliation Form, Thank You Letter, Antibiotic Education, Prescription Opioid Use form. - Follow up: Private Physician; When: 2 - 3 days; Reason: Re-evaluation by your physician. - Problem is new. - Symptoms have improved. Signatures: Dispatcher [employer] EDVT Jett James MD MD pkl [place], Winsy Corrections: (The following items were deleted from the chart) 06:34 05:49 03/21/2020 05:49 Discharged to Home. Impression: Right lower lobe pneumonia. Condition is Stable. Forms are Medication Reconciliation Form, Thank You Letter, Antibiotic Education, Prescription Opioid Use. Follow up: Private Physician; When: 2 - 3 days; Reason: Re-evaluation by your physician. Problem is new. Symptoms have improved. pkl
--- NOTE | 2020-03-21 05:50 | ER ---
Nurse's Notes [facility] Name[facility] Age: 54 yrs Sex: Female : 1965 Arrival Date: 03/21/2020 Time: 02:15 Bed 5 Private MD: Diagnosis: Right lower lobe pneumonia Presentation: 03/21 02:29 Chief complaint: Patient states: fever started yesterday at home took tylenol at around 1:30 this morning. Also complaining of chills, sore throat, loss of taste and smell, cough and nausea. Pt states son was positive for Covid and is admitted here. Coronavirus screen: chills, cough unrelated to allergies, fever, nausea, shaking with chills, shortness of breath, sore throat, loss of taste or smell. Ebola Screen: Patient negative for fever greater than or equal to 101.5 degrees Fahrenheit, and additional compatible Ebola Virus Disease symptoms Patient denies exposure to infectious person. Initial Sepsis Screen: Does the patient meet any 2 criteria? No. Patient's initial sepsis screen is negative. Does the patient have a suspected source of infection? Yes: Productive cough/pneumonia. Risk Assessment: Do you want to hurt yourself or someone else? Patient reports no desire to harm self or others. Onset of symptoms was March 21, 2020. 02:29 Method Of Arrival: Ambulatory 02:29 Acuity: DORITA 3 TAFFY PULLER: 02:34 LMP 2018 Historical: - Allergies: 02:33 IV contrast; 02:33 Phenergan; 02:33 Metformin HCl; - PMHx: 02:33 Asthma; Cirrhosis; Diabetes - NIDDM; Diverticulitis; Hypertension; Hypothyroidism; - PSHx: 02:33 Cholecystectomy; - Immunization history:: Adult Immunizations up to date. - Social history:: Smoking status: Patient reports the use of cigarette tobacco products, Patient uses alcohol. Screenin:33 Abuse screen: Denies threats or abuse. Denies injuries from another. Nutritional screening: No deficits noted. Tuberculosis screening: No symptoms or risk factors identified. Fall Risk None identified. Assessment: 02:33 General: Appears in no apparent distress. Behavior is calm, cooperative, appropriate for age. Pain: Complains of pain in sore throat. Neuro: Level of Consciousness is awake, alert, obeys commands, Oriented to person, place, time, situation, Appropriate for age. Cardiovascular: Heart tones S1 S2. Respiratory: Reports shortness of breath cough that is Airway is patent Respiratory effort is even, unlabored, Respiratory pattern is regular, symmetrical, Breath sounds are clear bilaterally. GI: Abdomen is flat, non-distended, Reports nausea. : No signs and/or symptoms were reported regarding the genitourinary system. EENT: Throat is pink. Derm: Skin is intact, is healthy with good turgor, Skin is pink, warm \T\ dry. normal. Musculoskeletal: Circulation, motion, and sensation intact. 03:45 Reassessment: Patient appears in no apparent distress at this time. No changes from previously documented assessment. Patient and/or family updated on plan of care and expected duration. Pain level reassessed. Patient is alert, oriented x 3, equal unlabored respirations, skin warm/dry/pink. 05:00 Reassessment: Patient appears in no apparent distress at this time. No changes from previously documented assessment. Patient and/or family updated on plan of care and expected duration. Pain level reassessed. Patient is alert, oriented x 3, equal unlabored respirations, skin warm/dry/pink. 06:33 Reassessment: Patient appears in no apparent distress at this time. No changes from previously documented assessment. Patient and/or family updated on plan of care and expected duration. Pain level reassessed. Patient is alert, oriented x 3, equal unlabored respirations, skin warm/dry/pink. Vital Signs: 02:29 BP 145 / 75; Pulse 85; Resp 18; Temp 98.7; Pulse Ox 97% ; Weight 99.79 kg; Height 5 ft. 7 in. (170.18 cm); 03:50 BP 141 / 67; Pulse 70; Resp 18; Pulse Ox 96% on R/A; 05:19 BP 125 / 66; Pulse 61; Resp 18; Pulse Ox 97% on R/A; 06:33 BP 140 / 68; Pulse 61; Resp 18; Pulse Ox 97% on R/A; 02:29 Body Mass Index 34.46 (99.79 kg, 170.18 cm) ED Course: 02:15 Patient arrived in ED. ag3 02:16 Silvino Marquez is Primary Nurse. 02:16 Jett James MD is Attending Physician. pkl 02:32 Triage completed. 02:34 Arm band placed on right wrist. 02:34 Patient has correct armband on for positive identification. Bed in low position. Call light in reach. Side rails up X 1. Pulse ox on. NIBP on. 03:20 Inserted saline lock: 20 gauge in right antecubital area, using aseptic technique. Blood collected. 03:24 CT Chest Wo Con In Process Unspecified. EDMS 06:33 No provider procedures requiring assistance completed. IV discontinued, intact, bleeding controlled, No redness/swelling at site. Administered Medications: 03:20 Drug: Zofran (Ondansetron) 4 mg Route: PO; 03:50 Follow up: Response: No adverse reaction; Nausea is decreased 06:20 Drug: Rocephin - (cefTRIAXone) 1 grams Route: IVPB; Infused Over: 30 mins; Site: right antecubital; 06:32 Follow up: Response: No adverse reaction; IV Status: Completed infusion Outcome: 05:49 Discharge ordered by . pkl 06:34 Discharged to home ambulatory. 06:34 Condition: stable 06:34 Discharge instructions given to patient, Instructed on discharge instructions, follow up and referral plans. medication usage, POC Demonstrated understanding of instructions, follow-up care, medications, POC Prescriptions given X 2. 06:34 Patient left the ED. Addendum: 03/23/2020 18:37 Addendum: COVID-19 Result: Positive result giiven to ED physician to notify pt. i w Physician: Reginaldo Urena MD Physician was able to contact pt and pt was notified of positive COVID-19 swab result. Physician answered pt questions. Signatures: Dispatcher [employer] EDCT Jett James MD MD pkSapna Rachel, ZOHAIB RN Silvino Sanchez Aide Ewing
[2020-03-21] MEDS ORDERED: CEFTRIAXONE/SWI 1gm 1 GM/10 ML SYR ONE (06:22)
[2020-03-21 06:39] VITALS: TEMP 98.7; O2SAT 97
[2020-03-21 06:55] VITALS: BP 125/66
--- NOTE | 2020-03-23 10:02 | RAD REPORT ---
EXAM DESCRIPTION: Abdomen Pelvis Wo Contrast COMPARISON: None CLINICAL HISTORY: Abdominal pain, constipation TECHNIQUE: Multiple helical axial images were obtained through the abdomen and pelvis using intraven ous contrast. Coronal and sagittal reformatted images were obtained. All CT scans at this facility use dose modulation, iterative reconstruction, and/or weight-based dosi ng when appropriate to reduce radiation dose to as low as reasonably achievable. FINDINGS: Lung bases: Appear unremarkable. Liver: Homogenous attenuation is noted. Gallbladder/biliary: Appears unremarkable Pancreas: Fatty changes are noted. No evidence of ductal enlargement. Spleen: Appears unremarkable. No splenomegaly. Adrenals: Unremarkable. Kidneys and ureters: No evidence of hydronephrosis. There are a few small, subtle rounded hypodensiti es in both kidneys suggestive of cysts. There are several small calcific densities in the bilateral r enal hilar regions which may represent stones versus vascular calcifications. Nonspecific symmetric p erinephric fat stranding noted. Bladder: Unremarkable. Pelvic organs: Unremarkable. Bowel: There is a moderate amount of fecal material in the colon and large amount in the rectum. No e vidence of bowel obstruction. No bowel wall thickening. Appendix appears unremarkable. Vasculature: Aortoiliac atherosclerosis is present. Peritoneum: No free air. No significant free fluid. Lymph nodes: Unremarkable. Soft tissues: Unremarkable. Bones: Unremarkable. Impression: 1. No evidence for an acute process within the abdomen or pelvis. 2. Moderate amount of fecal material in the colon and large amount of fecal material in the rectum co mpatible with constipation. 3. Possible small bilateral renal stones versus vascular calcifications. Electronically signed by: Pieter Gonzalez MD 03/21/2020 2:05 AM CDT Due to temporary technical issues with the PACS/Fluency reporting system, reports are being signed by the in house radiologist without review as a courtesy to ensure prompt reporting. The interpreting r adiologist is fully responsible for the content of the report.
== END 2020-03-21 06:34 | disposition home or self-care (01) ==
LOC: ER 02:08
DX: U07.1 COVID-19 (principal); J18.9 Pneumonia, unspecified organism; I10 Essential (primary) hypertension; F17.210 Nicotine dependence, cigarettes, uncomplicated; Z88.8 Allergy status to other drugs, medicaments and biological substances; Z91.041 Radiographic dye allergy status
CPT/HCPCS: 87070; 87088; 85025; 87086; 80048; 36415; 87081; 87077; 87186; 71250; 96374; 99284; U0002; J0696; 81003; 81015

== ENCOUNTER 2021-05-18 02:32 | Observation (INO) | payer BC ==
[2021-05-18] MEDS ORDERED: NA CHLORIDE 0.9% 1,000 ML ONE ×2 (03:23→05:11)
[2021-05-18] MEDS ORDERED: MORPHINE 4 MG/ML SYR ONE (03:23)
[2021-05-18] MEDS ORDERED: ONDANSETRON 4 MG/2 ML VIAL ONE ×2 (03:23→05:11)
[2021-05-18 03:40] LABS: Absolute Lymphocytes (CBC) 3.6 K/uL (0.7-4.9); Basophils % 1.9 % (0-1.3); Lymphocytes % 29.8 % (15.3-44.8); MPV 8.2 fL (7.6-11.3)
[2021-05-18 03:51] LABS: ALT/SGPT 59 U/L (12-78); AST/SGOT 32 U/L (15-37); Albumin 3.4 g/dL (3.4-5.0); Alkaline Phosphatase 187 U/L (45-117); BUN Blood Urea Nitrogen 12 mg/dL (7-18); Bicarbonate 26 mmol/L (21-32); Bilirubin Direct < 0.1 mg/dL (0-0.2); Bilirubin Total 0.3 mg/dL (0.2-1.0); Glucose Level 224 mg/dL (74-106); Lipase 65 U/L (73-393); Potassium 3.6 mmol/L (3.5-5.1); Protein, Total 8.2 g/dL (6.4-8.2); Sodium Level 138 mmol/L (136-145)
[2021-05-18 04:30] LABS: Urine Blood Negative (Negative); Urine Glucose Trace (Negative); Urine Protein Negative (Negative); Urine Specific Gravity >=1.030 (1.005-1.030); Urine pH 5.5 (5.0-7.0)
--- NOTE | 2021-05-18 04:45 | EDPHYS ---
[facility] Name: Jane Cordova Age: 56 yrs Sex: Female : 1965 Arrival Date: 05/18/2021 Time: 02:37 Bed 23 Private MD: Reginaldo Morales HPI: 05/18 03:02 This 56 yrs old Female presents to ER via Ambulatory with complaints of PAIN rajat IN SIDE. 03:02 The patient presents with abdominal pain in the epigastric area, in the upper abdomen, rajat abdominal distention in the upper abdomen, in the lower abdomen. Onset: The symptoms/episode began/occurred 4 day(s) ago. The patient complains of pain in the right mid back and right low back. The pain radiates to the right mid back and right low back. Onset: The symptoms/episode began/occurred 4 day(s) ago. Modifying factors: The symptoms are alleviated by nothing. the symptoms are aggravated by nothing. Associated signs and symptoms: The patient has no apparent associated signs or symptoms. The symptoms do not radiate. Associated signs and symptoms: none. Modifying factors: The symptoms are alleviated by remaining still, the symptoms are aggravated by breathing deeply, movement, pressure, touching the area, walking. 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 - Social history:: Smoking status: Patient reports the use of cigarette tobacco products, 5 cigs daily. - Family history:: not pertinent. ROS: 03:02 Constitutional: Negative for fever, chills, and weight loss, Eyes: Negative for injury, rajat pain, redness, and discharge, ENT: Negative for injury, pain, and discharge, Neck: Negative for injury, pain, and swelling, Cardiovascular: Negative for chest pain, palpitations, and edema, Respiratory: Negative for shortness of breath, cough, wheezing, and pleuritic chest pain, : Negative for injury, bleeding, discharge, and swelling, MS/Extremity: Negative for injury and deformity, Skin: Negative for injury, rash, and discoloration, Neuro: Negative for headache, weakness, numbness, tingling, and seizure, Psych: Negative for depression, anxiety, suicide ideation, homicidal ideation, and hallucinations, Allergy/Immunology: Negative for hives, rash, and allergies, Endocrine: Negative for neck swelling, polydipsia, polyuria, polyphagia, and marked weight changes, Hematologic/Lymphatic: Negative for swollen nodes, abnormal bleeding, and unusual bruising. 03:02 Abdomen/GI: Positive for abdominal pain, of the posterior aspect of right lateral abdomen, anterior aspect of right lateral abdomen, right upper quadrant and right lower quadrant. 03:02 Back: Positive for pain at rest, pain with movement, flank pain, on the left, radiated pain, of the left low back and left mid back. Exam: 03:05 Constitutional: This is a well developed, well nourished patient who is awake, alert, rajat and in no acute distress. Head/Face: Normocephalic, atraumatic. Eyes: Pupils equal round and reactive to light, extra-ocular motions intact. Lids and lashes normal. Conjunctiva and sclera are non-icteric and not injected. Cornea within normal limits. Periorbital areas with no swelling, redness, or edema. ENT: Nares patent. No nasal discharge, no septal abnormalities noted. Tympanic membranes are normal and external auditory canals are clear. Oropharynx with no redness, swelling, or masses, exudates, or evidence of obstruction, uvula midline. Mucous membranes moist. Neck: Trachea midline, no thyromegaly or masses palpated, and no cervical lymphadenopathy. Supple, full range of motion without nuchal rigidity, or vertebral point tenderness. No Meningismus. Chest/axilla: Normal chest wall appearance and motion. Nontender with no deformity. No lesions are appreciated. Cardiovascular: Regular rate and rhythm with a normal S1 and S2. No gallops, murmurs, or rubs. Normal PMI, no JVD. No pulse deficits. Respiratory: Lungs have equal breath sounds bilaterally, clear to auscultation and percussion. No rales, rhonchi or wheezes noted. No increased work of breathing, no retractions or nasal flaring. Pelvic Exam: Normal external genitalia. Speculum exam with closed cervical os, no discharge or bleeding noted. Bimanual exam with normal adnexa, no adnexal or cervical motion tenderness. Normal uterus. Female : Normal external genitalia. Skin: Warm, dry with normal turgor. Normal color with no rashes, no lesions, and no evidence of cellulitis. MS/ Extremity: Pulses equal, no cyanosis. Neurovascular intact. Full, normal range of motion. Neuro: Awake and alert, GCS 15, oriented to person, place, time, and situation. Cranial nerves II-XII grossly intact. Motor strength 5/5 in all extremities. Sensory grossly intact. Cerebellar exam normal. Normal gait. Psych: Awake, alert, with orientation to person, place and time. Behavior, mood, and affect are within normal limits. 03:05 Abdomen/GI: Inspection: abdomen appears normal, Bowel sounds: normal, Palpation: moderate abdominal tenderness, in the posterior aspect of right lateral abdomen, anterior aspect of right lateral abdomen, right upper quadrant and right lower quadrant. 06:08 ECG was reviewed by the Attending Physician. [facility] Vital Signs: 02:39 BP 155 / 78 RA Sitting (auto/reg); Pulse 95; Resp 18 S; Temp 98.8; Pulse Ox 97% on R/A; sj1 Weight 99.79 kg (R); Height 5 ft. 7 in. (170.18 cm) (R); Pain 10/10; 04:28 BP 141 / 65; Pulse 90; Resp 18; Pulse Ox 98% on R/A; lh3 06:20 BP 123 / 62; Pulse 66; Resp 16; Temp 98.6(O); Pulse Ox 97% on R/A; Pain 3/10; bc5 02:39 Body Mass Index 34.46 (99.79 kg, 170.18 cm) [facility] MDM: 02:46 Patient medically screened. [facility] 03:05 Differential diagnosis: nephrolithiasis, pyelonephritis, UTI, diverticulitis, rajat pancreatitis, gastritis, non-specific abd pain, pancreatitis, Peptic Ulcer Disease, Pyelonephritis, urinary tract infection. Data reviewed: vital signs, nurses notes, lab test result(s), EKG, radiologic studies, CT scan, plain films. 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 Test interpretation: by ED physician or midlevel provider: plain radiologic studies. Counseling: I had a detailed discussion with the patient and/or guardian regarding: the historical points, exam findings, and any diagnostic results supporting the discharge/admit diagnosis, lab results, radiology results. 05/18 02:55 Order name: Basic Metabolic Panel; Complete Time: 04:24 [facility] 05/18 02:55 Order name: CBC with Diff; Complete Time: 04:24 [facility] 05/18 02:55 Order name: Hepatic Function; Complete Time: 04:24 [facility] 05/18 02:55 Order name: Lipase; Complete Time: 04:24 [facility] 05/18 02:55 Order name: Urine Culture [facility] 05/18 04:30 Order name: Urine Dipstick-Ancillary; Complete Time: 04:34 [facility] 05/18 02:55 Order name: Chest Single View XRAY [facility] 05/18 02:55 Order name: CT Stone Protocol [facility] 05/18 04:40 Order name: COVID-19 : Document "Date of Symptom Onset" if Symptomatic. [facility] 05/18 05:04 Order name: US Abdomen Limited: RUQ/Liver/Biliary la1 05/18 06:21 Order name: SARS-COV-2 RT PCR [facility] 05/18 02:55 Order name: IV Saline Lock; Complete Time: 03:04 [facility] 05/18 02:55 Order name: Labs collected and sent; Complete Time: 03:04 [facility] 05/18 02:55 Order name: Urine Dipstick-Ancillary (obtain specimen); Complete Time: 04:28 [facility] 05/18 04:40 Order name: EKG; Complete Time: 04:41 [facility] 05/18 04:40 Order name: EKG - Nurse/Tech; Complete Time: 04:53 [facility] EC:08 Rate is 72 beats/min. Rhythm is regular. QRS [place] is Normal. SD interval is normal. QRS rajat interval is normal. QT interval is normal. No Q waves. T waves are Normal. No ST changes noted. Clinical impression: Normal ECG and No evidence of ischemia. Interpreted by me. Reviewed by me. Administered Medications: 03:06 Drug: NS 0.9% 1000 ml Route: IV; Rate: 1 bolus; Site: left antecubital; lh3 04:53 Follow up: IV Status: Completed infusion; IV Intake: 1000ml bc5 03:06 Drug: morphine 4 mg Route: IVP; Site: left antecubital; lh3 04:29 Follow up: Response: No adverse reaction lh3 04:54 Follow up: Response: Pain is decreased bc5 03:06 Drug: Zofran (Ondansetron) 4 mg Route: IVP; Site: left antecubital; lh3 04:28 Follow up: Response: No adverse reaction lh3 04:54 Follow up: Response: Nausea is decreased bc5 05:05 Drug: Zofran (Ondansetron) 4 mg Route: IVP; Site: left antecubital; lh3 06:21 Follow up: Response: Nausea is decreased bc5 05:05 Drug: Pepcid (famotidine) 20 mg Route: IVP; Site: left antecubital; lh3 06:21 Follow up: Response: No adverse reaction bc5 05:06 Drug: Cipro (ciprofloxacin) 400 mg Volume: 200 ml; Route: IVPB; Infused Over: 60 mins; lh3 Site: left antecubital; 06:21 Follow up: IV Status: Completed infusion; IV Intake: 200ml bc5 05:06 Drug: Flagyl (metroNIDAZOLE) 500 mg Volume: 100 ml; Route: IVPB; Rate: 200 ml/hr; lh3 Infused Over: 30 mins; Site: left antecubital; 06:21 Follow up: IV Status: Completed infusion; IV Intake: 100ml bc5 05:06 Drug: NS 0.9% 1000 ml Route: IV; Rate: 1 bolus; Site: left antecubital; lh3 05:06 Drug: morphine 2 mg Route: IVP; Site: left antecubital; 3 06:21 Follow up: Response: Pain is decreased bc5 Disposition Summary: 05/18/21 04:43 Hospitalization Ordered Hospitalization Status: Observation rajat Provider: Ismael Abel cha Location: Telemetry/MedSurg (observation) rajat Condition: Fair rajat Problem: new rajat Symptoms: have improved rajat Bed/Room Type: Standard rajat Room Assignment: 209(05/18/21 07:26) bd Diagnosis - Abdominal pain, unspecified - right upper quadrant, enteritis rajat - Elevated white blood cell count rajat - Vomiting rajat - Ileus, unspecified rajat - Type 2 diabetes mellitus with hyperglycemia rajat Forms: - Medication Reconciliation Form rajat - SBAR form rajat Signatures: Dispatcher [employer] Aleisha Michael Corey, MD MD cha Hardee, Latisha RN RN lh3 Michelle Coon RN RN sj1 Swetha Joy RN bc5 Corrections: (The following items were deleted from the chart) 07:26 04:43 rajat
--- NOTE | 2021-05-18 04:45 | ER ---
Nurse's Notes [facility] Name: Jane Cordova Age: 56 yrs Sex: Female : 1965 Arrival Date: 05/18/2021 Time: 02:37 Bed 23 Private MD: Diagnosis: Abdominal pain, unspecified-right upper quadrant, enteritis;Elevated white blood cell count;Vomiting;Ileus, unspecified;Type 2 diabetes mellitus with hyperglycemia Presentation: 05/18 02:39 Chief complaint: Patient states: rt flank pain that radiates to RLQ, c/o nausea. sj1 Coronavirus screen: Vaccine status: Patient reports receiving the 2nd dose of the covid vaccine. Patient reports receiving the 1st dose of the Covid vaccine. Ebola Screen: Patient negative for fever greater than or equal to 101.5 degrees Fahrenheit, and additional compatible Ebola Virus Disease symptoms Patient denies exposure to infectious person. Patient denies travel to an Ebola-affected area in the 21 days before illness onset. No symptoms or risks identified at this time. Initial Sepsis Screen: Does the patient meet any 2 criteria? No. Patient's initial sepsis screen is negative. Does the patient have a suspected source of infection? No. Patient's initial sepsis screen is negative. Risk Assessment: Do you want to hurt yourself or someone else? Patient reports no desire to harm self or others. Onset of symptoms was May 14, 2021. 02:39 Method Of Arrival: Ambulatory sj1 02:39 Acuity: DORITA 2 sj1 Triage Assessment: 02:41 General: Appears uncomfortable, Behavior is calm, cooperative, appropriate for age. sj1 Pain: Complains of pain in right flank Pain radiates to RLQ Pain currently is 10 out of 10 on a pain scale. Quality of pain is described as sharp, Pain began 2-3 days ago. Is continuous, Aggravated by MOVEMENT, SNEEZING, COUGHING. EENT: No deficits noted. Neuro: No deficits noted. GI: Reports nausea. : No deficits noted. 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 - Social history:: Smoking status: Patient reports the use of cigarette tobacco products, 5 cigs daily. - Family history:: not pertinent. Screenin:43 Abuse screen: Denies threats or abuse. Denies injuries from another. Nutritional sj1 screening: No deficits noted. Tuberculosis screening: No symptoms or risk factors identified. Fall Risk None identified. Assessment: 03:06 Reassessment: Pt c/o abdominal pain onset Monday, pt states nausea started today. bc5 General: Appears in no apparent distress. Pain: Complains of pain in abdomen. Neuro: No deficits noted. Cardiovascular: No deficits noted. Respiratory: No deficits noted. 05:11 Reassessment: Patient and/or family updated on plan of care and expected duration. Pain bc5 level reassessed. Patient is alert, oriented x 3, equal unlabored respirations, skin warm/dry/pink. Vital Signs: 02:39 BP 155 / 78 RA Sitting (auto/reg); Pulse 95; Resp 18 S; Temp 98.8; Pulse Ox 97% on R/A; sj1 Weight 99.79 kg (R); Height 5 ft. 7 in. (170.18 cm) (R); Pain 10/10; 04:28 BP 141 / 65; Pulse 90; Resp 18; Pulse Ox 98% on R/A; lh3 06:20 BP 123 / 62; Pulse 66; Resp 16; Temp 98.6(O); Pulse Ox 97% on R/A; Pain 3/10; bc5 02:39 Body Mass Index 34.46 (99.79 kg, 170.18 cm) sj1 ED Course: 02:37 Patient arrived in ED. ja2 02:41 Triage completed. sj1 02:41 Arm band placed on right wrist. sj1 02:43 Patient has correct armband on for positive identification. sj1 02:46 Reginaldo Urena MD is Attending Physician. [facility] 02:48 Swetha Joy, ZOHAIB is Primary Nurse. bc5 03:04 No provider procedures requiring assistance completed. Inserted saline lock: 20 gauge bc5 in left antecubital area, using aseptic technique. 03:19 CT Stone Protocol In Process Unspecified. EDMS 03:20 Chest Single View XRAY In Process Unspecified. EDMS 04:29 Urine Culture Sent. lh3 04:30 Urine Dipstick-Ancillary Sent. bc5 04:41 Ismael Abel MD is Hospitalizing Provider. [facility] 04:54 COVID-19 : Document "Date of Symptom Onset" if Symptomatic. Sent. bc5 07:12 Primary Nurse role handed off by Swetha Joy RN bd 07:13 Augustina Toro RN is Primary Nurse. tc5 Administered Medications: 03:06 Drug: NS 0.9% 1000 ml Route: IV; Rate: 1 bolus; Site: left antecubital; lh3 04:53 Follow up: IV Status: Completed infusion; IV Intake: 1000ml bc5 03:06 Drug: morphine 4 mg Route: IVP; Site: left antecubital; lh3 04:29 Follow up: Response: No adverse reaction lh3 04:54 Follow up: Response: Pain is decreased bc5 03:06 Drug: Zofran (Ondansetron) 4 mg Route: IVP; Site: left antecubital; lh3 04:28 Follow up: Response: No adverse reaction lh3 04:54 Follow up: Response: Nausea is decreased bc5 05:05 Drug: Zofran (Ondansetron) 4 mg Route: IVP; Site: left antecubital; lh3 06:21 Follow up: Response: Nausea is decreased bc5 05:05 Drug: Pepcid (famotidine) 20 mg Route: IVP; Site: left antecubital; lh3 06:21 Follow up: Response: No adverse reaction bc5 05:06 Drug: Cipro (ciprofloxacin) 400 mg Volume: 200 ml; Route: IVPB; Infused Over: 60 mins; lh3 Site: left antecubital; 06:21 Follow up: IV Status: Completed infusion; IV Intake: 200ml bc5 05:06 Drug: Flagyl (metroNIDAZOLE) 500 mg Volume: 100 ml; Route: IVPB; Rate: 200 ml/hr; lh3 Infused Over: 30 mins; Site: left antecubital; 06:21 Follow up: IV Status: Completed infusion; IV Intake: 100ml bc5 05:06 Drug: NS 0.9% 1000 ml Route: IV; Rate: 1 bolus; Site: left antecubital; 3 05:06 Drug: morphine 2 mg Route: IVP; Site: left antecubital; 3 06:21 Follow up: Response: Pain is decreased bc5 Intake: 04:53 IV: 1000ml; Total: 1000ml. bc5 06:21 IV: 200ml; Total: 1200ml. bc5 06:21 IV: 100ml; Total: 1300ml. bc5 Outcome: 04:43 Decision to Hospitalize by Provider. [facility] 08:56 Patient left the ED. tc5 Signatures: Dispatcher [employer] EDMS Aleisha Rivera Corey, MD MD cha Hardee, Latisha, RN RN lh3 Swathi Vela Bella RN RN bc5 Michelle Coon RN RN 1 Augustina Toro RN RN tc5
[2021-05-18] MEDS ORDERED: MORPHINE 2 MG/ML SYR ONE (05:11)
[2021-05-18] MEDS ORDERED: Ciprofloxacin 200mg IV 200 MG/100 ML IV.SOLN. IV ONE (05:11)
[2021-05-18] MEDS ORDERED: FAMOTIDINE 20 MG/2 ML VIAL IV ONE (05:11)
[2021-05-18] MEDS ORDERED: METRONIDAZOLE 500mg IVPB 500 MG/100 ML BAG IV ONE (05:12)
--- NOTE | 2021-05-18 05:15 | P.HP ---
Certification for Inpatient Patient admitted to: Observation With expected LOS: <2 Midnights Patient will require the following post-hospital care: None Practitioner: I am a practitioner with admitting privileges, knowledge of patient current condition, hospital course, and medical plan of care. Services: Services provided to patient in accordance with Admission requirements found in Title 42 Section 412.3 of the Code of Federal Regulations <Jonn Denton - Last Filed: 05/18/21 05:10> Patient History Date of Service: 05/18/21 Reason for admission: Abdominal pain History of Present Illness: 56-year-old female with history of Stevens, hypertension, hypothyroidism, asthma, diabetes mellitus type II presents emergency department for abdominal pain. Patient reports right upper quadrant abdominal pain since Monday which has been intermittent with associated nausea/vomiting. Patient denies any diarrhea reports last bowel movement was yesterday and normal no problems with flatus at this time. Patient was evaluated in the emergency department labs were significant for white blood cell count 12.0 glucose 224 alk phos 187 urinalysis negative for signs of infection or blood. CT abdomen pelvis without contrast demonstrate minimal prominent small bowel loop within the left flank area to represent mild ileus or enteritis. Appendix noted to be normal, patient with previous cholecystectomy with no complications noted on CT scan. Diverticulosis without diverticulitis at this time. Patient still with sig nificant pain/right upper quadrant abdominal tenderness on exam, ED provider wishes to admit under observation for further evaluation and management. - Past Medical/Surgical History Diabetic: Yes -: high cholesterol -: asthma -: hypertension -: non-alcoholic liver cirrhosis -: hypothyroidism -: Diabetes mellitus type 2 -: cataract surgery -: cholecystectomy Psychosocial/ Personal History: Patient is employed in [employer], lives at home with her and child. - Family History Mother -: Heart disease, Cancer Father -: Cancer - Social History Smoking Status: Current every day smoker Counseled patient to stop smoking for: less than 10 minutes Smoking therapy provided: No Alcohol use: No CD- Drugs: No Caffeine use: Yes Place of Residence: Home <Jonn Denton - Last Filed: 05/18/21 05:10> Date of Service: 05/18/21 <Ismael Abel - Last Filed: 05/18/21 13:00> Allergies promethazine HCl [From Phenergan] Allergy (Intermediate, Verified 11/12/18 10:24) forgetfulness metformin Adverse Reaction (Verified 05/18/21 09:53) Stomach Issues IV contrast Allergy (Uncoded 11/12/18 10:24) Hives Home Medications: Atorvastatin Calcium [Lipitor*] 10 mg PO DAILY 04/22/14 Levothyroxine [Synthroid*] 50 mcg PO DAILY 04/22/14 Losartan/Hydrochlorothiazide [Losartan-Hctz 100-25 mg Tab] 1 each PO DAILY 04/22/14 Albuterol Inhaler [Ventolin Inhaler*] 2 puff IH Q6H PRN 11/12/18 Docusate [Colace Cap*] 100 mg PO BID PRN #30 cap 11/15/18 Glimepiride 4 mg PO BIDAC 05/18/21 Insulin Aspart [Insulin Aspart Flexpen] 50 unit SQ PC 05/18/21 Insulin Glargine,Hum.rec.anlog [Lantus Solostar] 40 unit SQ BEDTIME 05/18/21 Insulin Glargine,Hum.rec.anlog [Lantus Solostar] 90 units SQ DAILY 05/18/21 Review of Systems 10-point ROS is otherwise unremarkable Gastrointestinal: Nausea, Vomiting, Abdominal Pain, As per HPI <Jonn Denton - Last Filed: 05/18/21 05:10> Physical Examination - Physical Exam General: Alert, In no apparent distress, Oriented x3 HEENT: Atraumatic, PERRLA, Mucous membr. moist/pink, EOMI, Sclerae nonicteric Neck: Supple, 2+ carotid pulse no bruit, No LAD, Without JVD or thyroid abnormality Respiratory: Clear to auscultation bilaterally, Normal air movement Cardiovascular: Regular rate/rhythm, Normal S1 S2 Capillary refill: <2 Seconds Gastrointestinal: Normal bowel sounds, No masses, No rebound, No guarding, Tenderness (Moderate right upper quadrant abdominal tenderness) Musculoskeletal: No tenderness Integumentary: No rashes Neurological: Normal gait, Normal speech, Normal strength at 5/5 x4 extr, Normal tone, Normal affect Lymphatics: No axilla or inguinal lymphadenopathy - Studies Laboratory Data (last 24 hrs) 05/18/21 03:02: WBC 12.00 H, Hgb 15.0, Hct 45.0, Plt Count 290 05/18/21 03:02: Sodium 138, Potassium 3.6, BUN 12, Creatinine 0.76, Glucose 224 H, Total Bilirubin 0.3, AST 32, ALT 59, Alkaline Phosphatase 187 H, Lipase 65 L <Jonn Denton - Last Filed: 05/18/21 05:10> - Studies Laboratory Data (last 24 hrs) 05/18/21 03:02: WBC 12.00 H, Hgb 15.0, Hct 45.0, Plt Count 290 05/18/21 03:02: Sodium 138, Potassium 3.6, BUN 12, Creatinine 0.76, Glucose 224 H, Total Bilirubin 0.3, AST 32, ALT 59, Alkaline Phosphatase 187 H, Lipase 65 L <Ismael Abel - Last Filed: 05/18/21 13:00> Assessment and Plan - Plan Assessment: RUQ abdominal pain/tenderness secondary to enteritis versus early ileus 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 Patient with previous cholecystectomy, no complications noted on CT scan. Patient does have a history of Stevens will obtain ultrasound right upper quadrant for further evaluation of possible causes of patient's abdominal pain. Reports last bowel movement yesterday and normal. 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 Diabetes mellitus type 2: Patient currently n.p.o. continue with every 6 hours Accu-Chek at this time sliding scale insulin. Hypertension: Continue home medication when appropriate Hypothyroidism:Continue home medication when appropriate Asthma: No exacerbation at this time provide medication as needed. DVT PPX: Lovenox Code status: Full Discharge Plan: Home Plan to discharge in: 24 Hours - Advance Directives Does patient have a Living Will: No Does patient have a Durable POA for Healthcare: No - Code Status/Comfort Care Code Status Assessed: Yes (Full code) Critical Care: No Time Spent Managing Pts Care (In Minutes): 55 <Jonn Denton - Last Filed: 05/18/21 05:10> - Plan Patient seen and examined on rounds this morning. Also with significant point tenderness in the right lower quadrant, with mild concern for appendicitis Patient states this is different pain compared to prior bouts of diverticulitis Questionable rebound tenderness CT nonspecific Continue n.p.o., IV fluids General surgery consulted <Ismael Abel - Last Filed: 05/18/21 13:00>
[2021-05-18 07:53] VITALS: BMI 34.4
--- NOTE | 2021-05-18 09:11 | RAD REPORT ---
EXAM DESCRIPTION: RAD - Chest Single View - 05/18/2021 3:20 am CLINICAL HISTORY: COUGH Chest pain. COMPARISON: Chest Pa And Lat (2 Views) dated 08/14/2019; Chest Pa And Lat (2 Views) dated 07/18/2016; CHEST SINGLE VIEW dated 08/03/2011; CHEST PA AND LAT 2 VIEW dated 08/02/2011 FINDINGS: Portable technique limits examination quality. The lungs are grossly clear. The heart is normal in size. No displaced fractures. IMPRESSION: No acute intrathoracic process suspected.
--- NOTE | 2021-05-18 09:16 | RAD REPORT ---
EXAM DESCRIPTION: US - Abdomen Exam Limited - 05/18/2021 5:41 am CLINICAL HISTORY: ABD PAIN COMPARISON: No comparisonsABDOMINAL EXAM COMPLETE dated 01/13/2011 FINDINGS: The gallbladder surgically absent. No pathologic biliary tree dilatation. Common duct clement ures 3 mm. The liver demonstrates significant fatty infiltration. IMPRESSION: Status post cholecystectomy without biliary dilatation. Diffuse fatty liver is present.
[2021-05-18] MEDS: INSULIN -REGULAR HUMAN 50 UNIT/0.5 ML ML SQ SCH ×3 (09:29→18:00)
[2021-05-18] MEDS ORDERED: GLUCAGON 1 MG/VIAL IM PRN (09:29)
[2021-05-18] MEDS ORDERED: ONDANSETRON 4 MG/2 ML VIAL IV PRN (09:29)
[2021-05-18] MEDS ORDERED: D50W 25 GM/50 ML SYRINGE IV PRN (09:29)
[2021-05-18] MEDS: NA CHLORIDE 0.9% 1,000 ML IV SCH ×2 (09:47→21:39)
[2021-05-18] MEDS: MORPHINE 2 MG/ML SYR IV PRN ×2 (09:47→20:20)
[2021-05-18] MEDS ORDERED: KCL 20 MEQ/100 mL IVPB 20 MEQ/100 ML BAG IV SCH (13:00)
--- NOTE | 2021-05-18 15:07 | RAD REPORT ---
EXAM DESCRIPTION: Stone Protocol 05/18/2021 4:03 AM CDT CLINICAL HISTORY: 56 years, Female, Abdominal distention;Abd pain COMPARISON: None. TECHNIQUE: Multiple transaxial tomograms of the abdomen and pelvis were performed from the lung base s to the symphysis pubis 3 mm slice thickness at 3 mm interval reconstruction, without administration of IV and oral contrast. Multiplanar reformats in the sagittal and coronal plane were generated and reviewed. This exam was performed according to our departmental dose-optimization protocol, which inc ludes automated exposure control, adjustment of the mA and/or kV according to patient size and/or use of iterative reconstruction technique. FINDINGS: The lack of IV and oral contrast limits evaluation of solid organs, subtle lesions cannot be excluded. The lung bases demonstrate to be clear. Grossly the unopacified liver, pancreas, spleen and adrenal glands demonstrate to be within normal limits, no significant focal lesions were identifi ed. Surgical clips within the gallbladder fossa correspond to previous cholecystectomy. The kidneys demonstrate grossly unremarkable. There is no evidence for nephrolithiasis and/or hydronephrosis. No focal masses were demonstrated. The ureters displays normal appearance with normal caliber, no hydroureter was seen. Grossly the unopacified stomach, small bowel and large bowel demonstrate to be within normal limits. There is no evidence for bowel dilatation/or free air. Minimal prominent sm all bowel loop within the left flank area could correspond to mild ileus and/or enteritis. The append ix is normal. There is diverticulosis within the sigmoid colon. The urinary bladder demonstrate to be within normal limits. The uterus demonstrate to be within normal limits. There is a cystic structure within the cervix measuring 2.1 x 2 cm on image 130 most likely chain sales representative of a nabothian cyst. No adnexal masses are identified. The aorta demonstrate very minimal atheromatous plaque formation. There is no retroperitoneal lymphadenopathy. There is no evidence for ascites. The rest of the sof t tissue demonstrate to be grossly unremarkable. IMPRESSION: No evidence for nephrolithiasis and/or hydronephrosis. Minimal prominent small bowel loo p within the left flank area could correspond to mild ileus and/or enteritis. Sigmoid diverticulosis without evidence for acute diverticulitis. Electronically signed by: Manny Camp MD 05/18/2021 4:05 AM CDT Due to temporary technical issues with the PACS/Fluency reporting system, reports are being signed by the in house radiologist without review as a courtesy to ensure prompt reporting. The interpreting r adiologist is fully responsible for the content of the report.
[2021-05-18] MEDS: METRONIDAZOLE 500mg IVPB 500 MG/100 ML BAG IV SCH (16:35)
[2021-05-18] MEDS: ENOXAPARIN 40 MG/0.4 ML SQ SCH (16:41)
[2021-05-18] MEDS: CIPROFLOXACIN 400mg IV 400 MG/200 ML BAG IV SCH (20:19)
--- NOTE | 2021-05-18 20:39 | P.CNS ---
Date of Consult: 05/18/21 PC: I was asked to see this 56-year-old female in regards to her abdominal pain. HPC: This patient, has had right upper abdominal pain since last . Describes the pain as being very severe. Hurts whenever she tries to move been or if touches in the area. Not associated with any nausea or vomiting. States she has been having regular bowel movements with no change in bowel habit. PSHx: Patient has had previous cholecystectomy. 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 Diabetes. Hypothyroid. Social Hx: Smokes about a pack of cigarettes a day. Does not drink alcohol. Sys R: No cough, wheeze, shortness of breath. Has been in recently good health until this episode. Follows up with her regular GI doctors were based in [place]. O/E: Awake alert comfortable until she tries to move and then does have what appears to be significant soreness. HEENT: Nonicteric Chest: Chest movement equal bilaterally Abd: Abdomen is soft no evidence of guarding or rebound. Is however tender on superficial examination in the right upper quadrant. No evidence of any skin rash at this time. [place]: Intact Data: Elevated white cell count no shift. CT scan does not demonstrate any acute process. She does have some possible mild dilation of her bowel consistent with enteritis but nothing noted on the right side of the abdomen. Impression: Abdominal pain. Plan: This patient is complaining of persistent right upper quadrant abdominal pain. She does not have any deep tenderness on palpation. Appears to be all superficial. I would let her have clear liquids until midnight and then we will make her n.p.o. and reassess in the morning. Does not require any acute surgical intervention at this time.
[2021-05-18 21:53] VITALS: O2SAT 98
[2021-05-19] MEDS: METRONIDAZOLE 500mg IVPB 500 MG/100 ML BAG IV SCH ×2 (00:07→10:53)
[2021-05-19] MEDS: INSULIN -REGULAR HUMAN 50 UNIT/0.5 ML ML SQ SCH ×3 (05:49→11:45)
[2021-05-19] MEDS: NA CHLORIDE 0.9% 1,000 ML IV SCH (05:54)
[2021-05-19 05:59] LABS: Absolute Lymphocytes (CBC) 2.1 K/uL (0.7-4.9); Basophils % 0.8 % (0-1.3); Hematocrit 39.4 % (36.0-45.0); Lymphocytes % 26.5 % (15.3-44.8); MPV 8.1 fL (7.6-11.3); RBC Red Blood Cell Count 4.48 M/uL (3.86-4.86)
[2021-05-19 06:25] LABS: ALT/SGPT 51 U/L (12-78); AST/SGOT 30 U/L (15-37); Albumin 2.8 g/dL (3.4-5.0); Alkaline Phosphatase 145 U/L (45-117); BUN Blood Urea Nitrogen 6 mg/dL (7-18); Bicarbonate 26 mmol/L (21-32); Bilirubin Total 0.5 mg/dL (0.2-1.0); Glucose Level 169 mg/dL (74-106); HDL Cholesterol 31 mg/dL (40-60); LDL Cholesterol, Calculated 143 (<130); Potassium 3.6 mmol/L (3.5-5.1); Sodium Level 139 mmol/L (136-145); Thyroid Stimulating Hormone 0.145 uIU/mL (0.360-3.740)
--- NOTE | 2021-05-19 08:16 | RAD REPORT ---
EXAM DESCRIPTION: RAD - Abdomen 1 View (KUB) - 05/19/2021 7:09 am CLINICAL HISTORY: ruq pain, ?ileus on CT COMPARISON: No comparisons FINDINGS: Nonobstructive bowel gas pattern. No acute osseous abnormality.Visualized lungs are unrema rkable.No abnormal calcifications. Surgical clips in the right upper quadrant. IMPRESSION: Nonobstructive bowel gas pattern.
[2021-05-19] MEDS ORDERED: POTASSIUM CL SA 10 MEQ TAB PO ONE (09:00)
[2021-05-19] MEDS: CIPROFLOXACIN 400mg IV 400 MG/200 ML BAG IV SCH (10:54)
[2021-05-19] MEDS: ENOXAPARIN 40 MG/0.4 ML SQ SCH (10:54)
--- NOTE | 2021-05-19 14:49 | P.PN ---
Date of Service: 05/19/21 S: Patient states she feels somewhat better today, still having some tenderness in the right upper quadrant. O: Vital signs are stable, patient clinically looks much better than yesterday. Has been able to tolerate a regular diet. A: Much improved since yesterday. P: Patient is going be discharged today. I think that is a reasonable thing to do. As she does not have any surgical intervention required at this time. She will follow-up with her regular delivery truck driver who knows her the most and has been working with her and her liver disease. Once again explained to the patient that we cannot see any other causes of concern at this time. She is comfortable and anticipating her discharge.
--- NOTE | 2021-05-19 15:26 | P.DS ---
Admission Date: 05/18/21 Discharge Date: 05/20/21 Disposition: ROUTINE DISCHARGE Discharge Condition: GOOD Reason for Admission: Abdominal pain Consultations: General surgery Dr. Barron Procedures: CT abd (05/18) FINDINGS: The lack of IV and oral contrast limits evaluation of solid organs, subtle lesions cannot be excluded. The lung bases demonstrate to be clear. Grossly the unopacified liver, pancreas, spleen and adrenal glands demonstrate to be within normal limits, no significant focal lesions were identified. Surgical clips within the gallbladder fossa correspond to previous k[place] cystectomy. The kidneys demonstrate grossly unremarkable. There is no evidence for nephrolithiasis and/or hydronephrosis. No focal masses were demonstrated. The ureters displays normal appearance with normal caliber, no hydroureter was seen. Grossly the unopacified stomach, small bowel and large bowel demonstrate to be within normal limits. There is no evidence for bowel dilatation/or free air. Minimal prominent small bowel loop within the left flank area could correspond to mild ileus and/or enteritis. The appendix is normal. There is diverticulosis within the sigmoid colon. The urinary bladder demonstrate to be within normal limits. The uterus demonstrate to be within normal limits. There is a cystic structure within the cervix measuring 2.1 x 2 cm on image 130 most likely plastic products sales representative of a nabothian cyst. No adnexal masses are identified. The aorta demonstrate very minimal atheromatous plaque formation. There is no retroperitoneal lymphadenopathy. There is no evidence for ascites. The rest of the soft tissue demonstrate to be grossly unremarkable. IMPRESSION: No evidence for nephrolithiasis and/or hydronephrosis. Minimal prominent small bowel loop within the left flank area could correspond to mild ileus and/or enteritis. Sigmoid diverticulosis without evidence for acute diverticulitis. abdominal ultrasound (05/18): FINDINGS: The gallbladder surgically absent. No pathologic biliary tree dilatation. Common duct measures 3 mm. The liver demonstrates significant fatty infiltration. IMPRESSION: Status post cholecystectomy without biliary dilatation. Diffuse fatty liver is present. KUB (05/19): FINDINGS: Nonobstructive bowel gas pattern. No acute osseous abnormality.Visualized lungs are unremarkable.No abnormal calcifications. Surgical clips in the right upper quadrant. IMPRESSION: Nonobstructive bowel gas pattern. 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 Patient reports right upper quadrant abdominal pain since Monday which has been intermittent with associated nausea/vomiting. Patient denies any diarrhea reports last bowel movement was yesterday and normal no problems with flatus at this time. Patient was evaluated in the emergency department labs were significant for white blood cell count 12.0 glucose 224 alk phos 187 urinalysis negative for signs of infection or blood. CT abdomen pelvis without contrast demonstrate minimal prominent small bowel loop within the left flank area to represent mild ileus or enteritis. Appendix noted to be normal, patient with previous cholecystectomy with no complications noted on CT scan. Diverticulosis without diverticulitis at this time. Patient still with signific ant pain/right upper quadrant abdominal tenderness on exam, ED provider wishes to admit under observation for further evaluation and management. Hospital Course: Patient was empirically treated with IV ciprofloxacin, Flagyl, IV fluids, and bowel rest. On reexamination, she did have significant right lower quadrant point tenderness as well. General surgery was consulted, reviewed imaging, evaluated the patient, and felt there is no surgical issues or acute process going on within the abdomen. Patient's pain did seem to be very superficial, elicited with [place] pressure to reach the abdominal muscles/abdominal wall. Pain occurred with movement, and was much better/controlled when not moving. Labs were within normal limits with exception of a mildly elevated alkaline phosphatase, to similar to prior results. She had improvement of her pain, was much more tolerable, her diet was advanced to GI soft diet which she tolerated well. She had a bowel movement, and nausea improved/resolved. Although there is no definitive diagnosis, she was deemed stable to be discharged home, no obvious life-threatening pathologic process occurring. Patient felt comfortable with this plan. She stated she would have close follow-up with her scene painter. Discussed return precautions. Patient discharged home with a few pills for a PRN pain medication. Vital Signs/Physical Exam: Temp Pulse Resp BP Pulse Ox 98 F 65 18 149/76 H 96 05/19/21 11:38 05/19/21 11:38 05/19/21 11:38 05/19/21 11:38 05/19/21 11:38 General: Alert, In no apparent distress HEENT: Sclerae nonicteric Neck: Supple Respiratory: Clear to auscultation bilaterally, Normal air movement Cardiovascular: No edema, Regular rate/rhythm Gastrointestinal: Soft and benign, Non-distended, Tenderness (minimal RUQ) Musculoskeletal: No erythema, No tenderness Integumentary: No rashes Neurological: Normal speech, Normal affect Laboratory Data at Discharge: WBC 8.00 K/uL (4.3-10.9) D 05/19/21 05:34 Hgb 13.4 g/dL (12.0-15.0) 05/19/21 05:34 Hct 39.4 % (36.0-45.0) 05/19/21 05:34 Plt Count 229 K/uL (152-406) D 05/19/21 05:34 Sodium 139 mmol/L (136-145) 05/19/21 05:34 Potassium 3.6 mmol/L (3.5-5.1) 05/19/21 05:34 BUN 6 mg/dL (7-18) L 05/19/21 05:34 Creatinine 0.54 mg/dL (0.55-1.3) L 05/19/21 05:34 Glucose 169 mg/dL (74-106) H 05/19/21 05:34 Total Bilirubin 0.5 mg/dL (0.2-1.0) 05/19/21 05:34 AST 30 U/L (15-37) 05/19/21 05:34 ALT 51 U/L (12-78) 05/19/21 05:34 Alkaline Phosphatase 145 U/L (45-117) H 05/19/21 05:34 Triglycerides 146 mg/dL (<150) 05/19/21 05:34 Cholesterol 203 mg/dL (<200) H 05/19/21 05:34 HDL Cholesterol 31 mg/dL (40-60) L 05/19/21 05:34 Cholesterol/HDL Ratio 6.55 05/19/21 05:34 Lipase 65 U/L (73-393) L 05/18/21 03:02 Home Medications: Atorvastatin Calcium [Lipitor*] 10 mg PO DAILY 04/22/14 Levothyroxine [Synthroid*] 50 mcg PO DAILY 04/22/14 Losartan/Hydrochlorothiazide [Losartan-Hctz 100-25 mg Tab] 1 each PO DAILY 04/22/14 Albuterol Inhaler [Ventolin Inhaler*] 2 puff IH Q6H PRN 11/12/18 Docusate [Colace Cap*] 100 mg PO BID PRN #30 cap 11/15/18 Glimepiride 4 mg PO BIDAC 05/18/21 Insulin Aspart [Insulin Aspart Flexpen] 50 unit SQ PC 05/18/21 Insulin Glargine,Hum.rec.anlog [Lantus Solostar] 40 unit SQ BEDTIME 05/18/21 Insulin Glargine,Hum.rec.anlog [Lantus Solostar] 90 units SQ DAILY 05/18/21 Tramadol HCl [Ultram] 50 mg PO Q8H #10 tablet 05/19/21 New Medications: Tramadol HCl [Ultram] 50 mg PO Q8H #10 tablet Physician Discharge Instructions: Your pain is likely muscular or from your subcutaneous fat. You were evaluated with CT Abd/pelvis, abdominal ultrasound, and blood work, which were all normal. There was a slight rise in your alkaline phosphatase level, but was similar to previous results. You were also evaluated by general surgery, Dr. Barron. You were deemed stable for discharge home. Recommend follow up with your PCP in 3-5 days, and with your liver doctor in the next week. Diet: ADA Activity: Ad avel Followup: German Fox DO [Primary Care Provider] - Time spent managing pt's care (in minutes): 45
[2021-05-19 16:14] VITALS: BP 119/63; TEMP 98.3
--- NOTE | 2021-05-19 16:40 | EKG ---
Test Date: 2021-05-18 Test Time: 04:51:29 Relief Mate: MEASUREMENT RESULTS: Intervals: Rate: 72 OR: 144 QRSD: 82 QT: 414 QTc: 453 Trout: P: 69 OR: 144 QRS: 2 T: 32 INTERPRETIVE STATEMENTS: Normal sinus rhythm Normal ECG No previous ECG available for comparison Electronically Signed On 05-19-21 16:36:09 CDT by Kevin El
== END 2021-05-19 16:03 | disposition home or self-care (01) ==
LOC: ER 02:32 → ERHOLD 05:10 → 2ND 08:33
PROVIDERS: ADMIT Hospitalist; ATTEND Hospitalist
DX: R10.11 Right upper quadrant pain (principal); R10.813 Right lower quadrant abdominal tenderness; M79.18 Myalgia, other site; E65 Localized adiposity; K75.81 Nonalcoholic steatohepatitis (NASH); K74.60 Unspecified cirrhosis of liver; E11.65 Type 2 diabetes mellitus with hyperglycemia; I10 Essential (primary) hypertension; E03.9 Hypothyroidism, unspecified; J45.909 Unspecified asthma, uncomplicated; R11.2 Nausea with vomiting, unspecified; K57.30 Diverticulosis of large intestine without perforation or abscess without bleeding; D72.829 Elevated white blood cell count, unspecified; E78.00 Pure hypercholesterolemia, unspecified; F17.210 Nicotine dependence, cigarettes, uncomplicated; Z71.6 Tobacco abuse counseling; Z20.822 Contact with and (suspected) exposure to COVID-19; Z79.4 Long term (current) use of insulin; Z91.041 Radiographic dye allergy status; Z90.49 Acquired absence of other specified parts of digestive tract; Z80.9 Family history of malignant neoplasm, unspecified; Z82.49 Family history of ischemic heart disease and other diseases of the circulatory system
CPT/HCPCS: 96365; 96361; 96368; 93005; 87088; 85025 ×2; 87086; 80048; 36415 ×2; 80061; 82947 ×5; 80076; 84443; 81003; 84439; 83690; 80053; 76377; 74176; 74018; 71045; 76705; 96375; 99284; U0003; J3480; J1650 ×2; J2270 ×3; J0744 ×3; J7030 ×5; J2405 ×3; G0378 ×3

== ENCOUNTER 2023-05-24 17:14 | Emergency (ER) | payer BC, OTHER ==
--- OUTSIDE RECORDS SUMMARY | 2023-05-24 17:18 | XMS REPORT | Continuity of Care Document ---
:1965 Author Organization [facility] t Address [address] [facility] [place] [address] Care Team Providers Name Role Phone Asked, No Pcp Primary Care Physician Unavailable German Fox Attending Clinician Unavailable CLAIRE MEDINA Attending Clinician Unavailable MD IRENE OGDEN Attending Clinician Unavailable NELLY HARRIS Attending Clinician Unavailable Only, Adc Test Attending Clinician Unavailable Dylon Fox MD Attending Clinician DYLON FOX Attending Clinician Unavailable IRENE OGDEN Admitting Clinician Unavailable MD IRENE OGDEN Admitting Clinician Unavailable Payers Payer Name Policy Type Policy Number Effective Date Expiration Date S ource Problems Condition Condition Condition Status Onset Resolution Last Treating Co mments Source Name Details Category Date Date Treatment Clinician Date Disorder 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 Mild Mild Diagnosis Active Common intermitte intermitte Sp belgica nt asthma, nt asthma, - CHI unspecifie unspecifie St d whether d whether Luke s complicate complicate Me dical d d Center Vitamin Vitamin Diagnosis Active Commo n B12 B12 Spirit deficiency deficiency [facility] Vitamin D Vitamin D Diagnosis Active C ommon deficiency deficiency Sp belgica - [facility] Essential Essential Diagnosis Active C ommon hypertensi hypertensi Sp belgica on on [facility] Fatigue, Fatigue, Diagnosis Active Com mon unspecifie unspecifie Sp belgica d type d type - [facility] Hypothyroi Hypothyroi Diagnosis Active Common dism, dism, Spirit unspecifie unspecifie - [facility]I d type d type [facility] Diverticul Diverticul Problem Active C ommon itis itis Spirit [facility] Mixed Mixed Diagnosis Active Common hyperlipid hyperlipid Sp belgica emia emia [facility] Allergies, Adverse Reactions, Alerts Allergy Allergy Status Severity Reaction(s) Onset Inactive Treating Comm ents Source Name Type Date Date Clinician Iodine Propensi Active Hives Methodi ty to [address] st adverse 00:00: Hospita reaction 00 l s to drug Metformi Propensi Active GI Bleeding It gives Methodi n ty to 04-[address] adverse 00:00: bad Hospita reaction 00 stomach l s to issues drug and pain. Prometha Propensi Active Anxiety It made Meth tomy zine ty to 8 me kick, st adverse 00:00: it was a Hospita reaction 00 really l s to strange drug reaction. NO KNOWN Drug Active Univers ALLERGIE Class ity of S [facility] Phenerga Adverse Active Info Not Commo n n Reaction Available Spiri t [facility] Social History Social Habit Start Date Stop Date Quantity Comments Source Sexual orientation Method ist Hospital History of tobacco Smokes tobacco Me thodist use daily Hospital Exposure to Not sure University of SARS-CoV-2 (event) [facility] History of Social 2021-07-17 2021-07-[address] function 00:00:00 00:00:00 Hospital Alcohol intake 2021-07-15 2021-07-15 Ex-drinker [facility] 00:00:00 00:00:00 (finding) Hospital Tobacco use and 2019-04-03 2019-04-03 Smokeless [facility] exposure 00:00:00 00:00:00 tobacco non-user Hospital Cigarettes smoked 2019-04-03 2019-04-[address] current (pack per 00:00:00 00:00:00 Hospita l day) - Reported Cigarette 2019-04-03 2019-04-03 [facility] pack-years 00:00:00 00:00:00 Hospital Sex Assigned At [birth year] [facility] 00:00:00 00:00:00 Hospital Smoking Status Start Date Stop Date Source Unknown if ever smoked [facility] Smokes tobacco daily 2019-04-03 00:00:00 [facility] Medications Ordered Filled Start Stop Current Ordering Indication Dosage Frequency Signature Comments Components Source Medication Medication Date Date Medication? Clinician (SIG) Name Name amLODIPine 2020-08 Yes 10mg QD Take 10 mg M ethodi (NORVASC) 2-[address] 10 mg 17:58: daily. Hospita tablet 01 l hydroCHLORO 2020-08 Yes 12.5mg QD Take 12.5 Methodi thiazide 2-[address] (HYDRODIURI 17:58: mouth Hospi ta L) 12.5 MG 01 daily. l tablet rosuvastati 2020-08 Yes 10mg QD Take 10 mg Methodi n (CRESTOR) 2-[address] 10 mg 17:58: daily. Hospita tablet 01 l insulin 2020-08 Yes 15U [id number] Inject 15 Methodi ASPART 2-[id number] (NovoLOG) 17:58: 3D under the Hos ata 100 unit/mL 01 skin 3 l injection (three) times a day before meals. pantoprazol 2020-08 Yes 40mg QD Take 40 mg Methodi e 2-[address] (PROTONIX) 17:58: daily. Hospi ta 40 MG EC 01 l tablet riFAXimin 2020-08 Yes 550mg Q.5D Take 550 Met hodi (XIFAXAN) 2-[address] 550 mg 17:58: mouth 2 Hospita tablet 01 (two) l times a day. ursodioL 2020-08 Yes 500mg Q.5D Take 500 Meth tomy (ACTIGALL) 2-[address] 500 MG 17:58: mouth 2 Hospita tablet 01 (two) l times a day. levothyroxi 2020-08 Yes 175ug QD Take 175 M ethodi ne 2-[address] (SYNTHROID) 17:58: mouth Hospi ta 175 mcg 00 every l tablet morning. amlodipine- 2020-08 Yes 1{tbl} QD Take 1 Me thodi olmesartan 2-[address] (RISHI) 17:58: mouth Hospita 10-40 mg 00 daily. l per tablet hyoscyamine 2020-08 Yes .125mg Q8H Take 1 Me thodi (Levsin/SL) 2-[address] 0.125 mg SL 00:00: (0.125 mg H ospita tablet 00 total) by l mouth every 8 (eight) hours as needed for cramping (abdominal pain). methocarbam 2020-08 Yes 500mg Q.[id number] Take 1 Methodi oL 2-[id number] (ROBAXIN) 00:00: 3D (500 mg Hospi ta 500 MG 00 total) by l tablet mouth 3 (three) times a day as needed for muscle spasms. insulin 2020-08 Yes 45U QD Inject 45 Metho di GLARGINE 2-[address] (LANTUS) 00:00: under the Hosp juani 100 unit/mL 00 skin daily l injection with (vial) breakfast. Endocrinol ogy follow-up needed Synthroid Synthroid Yes German 1 tablet Common 7-26 Fox on an Spirit 00:00: empty - CHI 00 stomach in [facility] Losartan Losartan Yes German 1 tablet C ommon Potassium-H Potassium-H Fox Spirit CTZ CTZ - [facility] Synthroid Synthroid Yes German 1 tablet Common Fox on an Spirit empty - CHI stomach in [facility] Metformin Metformin Yes German 1 tablet Common HCl HCl Fox with meals Spirit [facility] Rosuvastati Rosuvastati Yes German 1 tablet Common n Calcium n Calcium Fox Spir it - CHI [facility] Liothyronin Liothyronin Yes German 1 tablet Common e Sodium e Sodium Fox on an Spiri t empty - CHI stomach [facility] Procedures This patient has no known procedures. Plan of Care Planned Activity Planned Date Details Comments Source Future Scheduled 2023-05-20 Screening for [facility] Test 04:37:22 malignant neoplasm of colon (procedure) [code = 893153176] Future Scheduled 2023-05-20 Screening for [facility] Test 04:37:22 malignant neoplasm of colon (procedure) [code = 583568553] Future Scheduled 2023-05-20 HEPATITIS B VACCINES Met [facility] Test 04:37:22 (1 of 3 - 3-dose series) [code = HEPATITIS B VACCINES (1 of 3 - 3-dose series)] Future Scheduled 2023-05-20 Screening for [facility] Test 04:37:22 malignant neoplasm of colon (procedure) [code = 252587611] Future Scheduled 2023-05-20 Pneumococcal Vaccine: [facility] Test 04:37:22 Pediatrics (0 to 5 Years) and At-Risk Patients (6 to 64 Years) (1 - PCV) [code = Pneumococcal Vaccine: Pediatrics (0 to 5 Years) and At-Risk Patients (6 to 64 Years) (1 - PCV)] Future Scheduled 2023-05-20 Hepatitis C screening [facility] Test 04:37:22 (procedure) [code = 881366517] Future Scheduled 2023-05-20 Screening for [facility] Test 04:37:22 malignant neoplasm of cervix (procedure) [code = 053733574] Future Scheduled 2023-05-20 BREAST CANCER [facility] Test 04:37:22 SCREENING [code = BREAST CANCER SCREENING] Future Scheduled 2023-05-20 Screening for [facility] Test 04:37:22 malignant neoplasm of colon (procedure) [code = 813745438] Future Scheduled 2023-05-20 Screening for [facility] Test 04:37:22 malignant neoplasm of colon (procedure) [code = 793016155] Future Scheduled 2023-05-20 SHINGLES VACCINES (1 Met [facility] Test 04:37:22 of 2) [code = SHINGLES VACCINES (1 of 2)] Future Scheduled 2023-05-20 COVID-19 VACCINE (3 - [facility] Test 04:37:22 season) [code = COVID-19 VACCINE (3 - season)] Future Scheduled 2023-05-20 INFLUENZA VACCINE (#1) [facility] Test 04:37:22 [code = INFLUENZA VACCINE (#1)] Future Scheduled 2023-05-20 RSV VACCINES > 60 YR [facility] Test 04:37:22 (1 - 1-dose 60+ series) [code = RSV VACCINES > 60 YR (1 - 1-dose 60+ series)] Encounters Start End Encounter Admission Attending Care Care Encounter Source Date/Time Date/Time Type Type Clinicians Facility Department ID 2023-04-28 Outpatient ERICK Fox [facility] [id number] Common 16:15:00 [facility] [id number] [facility] 2021-07-15 2021-07-20 Inpatient ADAM, [facility] [id number] [place] 00:00:00 00:00:00 CLAIRE 731 Method i 2020-06-09 2020-06-09 Emergency KIMBERLY, [facility] [id number] [place] 00:00:00 00:00:00 NELLY dominguez 2020-04-30 2020-04-30 Laboratory Only, [facility] [id number] 10:27:09 10:42:09 Only Test [place] [id number] [place] [id number] [place] [id number] [facility] 2020-04-30 2020-04-30 Laboratory Only, Adc Test [facility] [id number] Univers 10:27:09 10:42:09 Only Dylon Fox [id number] iteugene [facility] [id number] [place] [id number] 2020-04-30 2020-04-30 Outpatient Aren FOX [facility] [id number] Univers 10:15:00 10:15:00 DYLON wright [facility] 2018-03-01 2018-03-01 Outpatient Joanna Higgins [id number] Common 13:15:00 13:15:[address] [facility] it [employer] [facility] 2017-11-30 2017-11-30 Outpatient Joanna Higgins [id number] Common 13:15:00 13:15:[address] [facility] it [address] [facility] 2017-11-06 2017-11-06 Outpatient [facility] [id number] Common 13:30:00 13:30:00 t [employer] [facility] Results Test Description Test Time Test Comments Results Result Comments Source SARS-CoV-2 (COVID-19) RNA [Presence] in Respiratory sp ecimen by 2021-07-15 20:21:55 ANA M with probe detection Test Item Value Reference Range Interpretation Comme nts SARS-CoV-2 (COVID-19) RNA [Presence] in Respiratory Not detected No t-Detected specimen by ANA M with probe detection (test code = 03723-7) Whether patient is employed in a healthcare setting (test code = 65027-8) Whether the patient has symptoms related to condition of interest (test code = 04279-4) Patient was hospitalized because of this condition (test code = 72279-2) Whether the patient was admitted to intensive care unit (ICU) for condition of interest (test code = 10785-5) Whether patient resides in a congregate care setting (test code = 34090-9) NELLIE HERNANDEZ
[2023-05-24 18:10] LABS: Absolute Lymphocytes (CBC) 4.2 K/uL (0.7-4.9); Hematocrit 45.4 % (36.0-45.0); Lymphocytes % 27.9 % (15.3-44.8); MCV 92.5 fL (80-100); MPV 7.7 fL (7.6-11.3); Platelets 323 thou/uL (152-406); RBC Red Blood Cell Count 4.91 M/uL (3.86-4.86)
[2023-05-24 18:11] LABS: Protime INR 1.09
--- NOTE | 2023-05-24 18:30 | RAD REPORT ---
EXAM DESCRIPTION: CT - Head Brain Wo Cont - 05/24/2023 6:05 pm CLINICAL HISTORY: DIZZINESS COMPARISON: No comparisons TECHNIQUE: Noncontrast head CT images were obtained without IV contrast. Multiplanar reformats were generated and reviewed. All CT scans are performed using dose optimization technique as appropriate and may include automated exposure control or mA/KV adjustment according to patient size. FINDINGS: No intracranial hemorrhage, mass, or edema. Midline structures are unremarkable. Normal ventricular caliber for age. Man-white matter differentiation is preserved, without evidence of acute infarct. No abnormal extra- axial fluid collections. Mastoid air cells and visualized portions of the paranasal sinuses are clear. No acute bony findings. IMPRESSION: No evidence of an acute intracranial process.
[2023-05-24 18:54] LABS: Albumin 3.7 g/dL (3.4-5.0); Bilirubin Direct 0.1 mg/dL (0-0.2); Bilirubin Indirect, Calculated 0.3 mg/dL (0.2-0.8); Bilirubin Total 0.4 mg/dL (0.2-1.0); Magnesium 2.5 mg/dL (1.6-2.4); Potassium 3.7 mEq/L (3.5-5.1); Protein, Total 8.7 g/dL (6.4-8.2); Troponin High Sensitivity 15.5 pg/mL (<58.9)
--- NOTE | 2023-05-24 19:01 | RAD REPORT ---
EXAM DESCRIPTION: RADChest Single View05/24/2023 6:14 pm CLINICAL HISTORY: CHEST PAIN COMPARISON: Abdomen 1 View (KUB) dated 05/19/2021; Chest Single View dated 05/18/2021; Chest Pa And Lat (2 Views) dated 08/14/2019; Chest Pa And Lat (2 Views) dated 07/18/2016 TECHNIQUE: Portable AP view of the chest. FINDINGS: The lungs are clear. No pneumothorax or effusion. The cardiomediastinal contours are unre markable. IMPRESSION: No acute cardiopulmonary process.
--- NOTE | 2023-05-24 19:51 | EDPHYS ---
Physician Documentation [facility] Name: Jane Cordova Age: 58 yrs Sex: Female : 1965 Arrival Date: 05/24/2023 Time: 17:14 Bed 5 Private MD: ED Physician Jeremie Fox HPI: 05/25 02:24 This 58 yrs old Female presents to ER via Wheelchair with complaints of sb4 Dizziness, Abdominal Cramping, Blurred Vision. 02:24 The patient presents with dizziness. Onset: The symptoms/episode began/occurred 1 sb4 week(s) ago. Modifying factors: the symptoms are aggravated by standing up, changing position. Associated signs and symptoms: Pertinent negatives: nausea, near-syncope, shortness of breath. The patient has been recently seen by a physician: the patient's primary care provider, 1 week(s) ago. 02:44 Patient states that she has been feeling dizzy for some time now. She had not seen a [facility] primary care in over 2 years. She saw 1 last week who changed her medicine and diagnosed her with hypothyroidism. She did not start her new medication until this morning. She states that she could no longer tolerate the dizziness and came in to be evaluated. Historical: - Allergies: 05/24 17:33 Metformin HCl; mb9 17:33 IV contrast; mb9 17:33 Phenergan; mb9 - Home Meds: 17:33 losartan-hydrochlorothiazide 100-25 mg Oral tab 1 tab once daily [Active]; Jardiance 25 mb9 mg oral tablet [Active]; pravastatin 40 mg oral tablet [Active]; Decara oral [Active]; hyoscyamine sulfate 0.125 mg SL Tablet, Sublingual [Active]; levothyroxine oral [Active]; - PMHx: 17:33 Asthma; Hypertension; Hypothyroidism; Diverticulitis; Diabetes - NIDDM; Cirrhosis; mb9 - PSHx: 17:33 Cholecystectomy; mb9 - Immunization history:: Adult Immunizations up to date. - Social history:: Smoking status: Patient reports the use of cigarette tobacco products, smokes one pack cigarettes per day. ROS: 05/25 02:44 Constitutional: Negative for fever, chills, and weight loss, sb4 Neuro: Positive for dizziness, Negative for altered mental status, gait disturbance, syncope, tinnitus, visual changes, Exam: 02:44 Constitutional: This is a well developed, well nourished patient who is awake, alert, sb4 and in no acute distress. Head/Face: Normocephalic, atraumatic. Eyes: Extra-ocular motions intact. Periorbital areas with no swelling, redness, or edema. ENT: Mucous membranes moist. Cardiovascular: Regular rate and rhythm with a normal S1 and S2. Respiratory: Lungs have equal breath sounds bilaterally, clear to auscultation and percussion. No rales, rhonchi or wheezes noted. No increased work of breathing, no retractions or nasal flaring. Abdomen/GI: Soft, non-tender, no distension. Skin: Warm, dry with normal turgor. Normal color with no rashes, no lesions, and no evidence of cellulitis. MS/ Extremity: Pulses equal, no cyanosis. Neurovascular intact. Full, normal range of motion. 02:44 Neuro: Orientation: is normal, to person, place, time \T\ situation. Mentation: is normal, Cranial nerves: grossly normal, extraocular movements are intact, Facial palsy and sensory deficits are absent. Nystagmus is absent. Speech is clear and appropriate. Cerebellar function: is grossly normal, normal finger to nose testing, heel to altman testing is normal, Motor: is normal, strength is normal, strength is 5/5 in all extremities, Gait: is steady, without difficulty, seizure activity, is not displayed by the patient, Vital Signs: 05/24 17:32 BP 141 / 75; Pulse 79; Resp 16; Temp 98.4; Pulse Ox 97% on R/A; Weight 105.69 kg; mb9 Height 5 ft. 7 in. ; 17:52 BP 116 / 58 Supine; Pulse 72; nj1 17:52 BP 130 / 77 Sitting; Pulse 70; nj1 18:59 BP 126 / 72; Pulse 72; Resp 16; Pulse Ox 95% ; bp 19:52 BP 117 / 73; Pulse 67; Resp 13; Pulse Ox 95% ; bp 20:18 BP 120 / 69; Pulse 69; Resp 16; Pulse Ox 95% ; bp 17:32 Body Mass Index 36.49 (105.69 kg, 170.18 cm) mb9 17:52 Pt complained of dizzines, room spining when she sat up, this RN assits patient by nj1 holding hand. Standing vital signs deferred at this time. MDM: 17:26 Patient medically screened. sb4 05/25 02:44 Differential diagnosis: cardiac arrhythmia, CVA, generalized weakness, hypovolemia, sb4 idiopathic dizziness, near-syncope, syncope, TIA, vertigo. Data reviewed: vital signs, nurses notes, lab test result(s), EKG, radiologic studies, I have discussed the patient's presentation/case with the attending Emergency Department Physician; and as a result, I will discharge patient. Consideration of Admission/Observation Escalation of care including admission/observation considered. Care significantly affected by the following chronic conditions: Diabetes, Hypertension. Counseling: I had a detailed discussion with the patient and/or guardian regarding the historical points, exam findings, and any diagnostic results supporting the discharge/admit diagnosis, the presence of at least one elevated blood pressure reading (>120/80) during this emergency department visit, lab results, radiology results, the need for outpatient follow up, for definitive care, to return to the emergency department if symptoms worsen or persist or if there are any questions or concerns that arise at home. ED course: Instructed patient to continue taking her levothyroxine as prescribed and that her dizziness should subside as her thyroid corrects. I provided her with a copy of her TSH and T4 results to take to her primary care provider to assess her levothyroxine dosing when she sees him in a few weeks. She understand. 05/24 17:36 Order name: Basic Metabolic Panel; Complete Time: 19:19 sb4 05/24 17:36 Order name: CBC with Diff; Complete Time: 18:16 sb4 05/24 17:36 Order name: LFT's; Complete Time: 19:19 sb4 05/24 17:36 Order name: Magnesium; Complete Time: 19:19 sb4 05/24 17:36 Order name: NT PRO-BNP; Complete Time: 19:19 sb4 05/24 17:36 Order name: PT-INR; Complete Time: 18:16 sb4 05/24 17:36 Order name: Troponin HS; Complete Time: 19:19 sb4 05/24 17:36 Order name: TSH; Complete Time: 19:19 sb4 05/24 18:57 Order name: T4 Free; Complete Time: 19:19 EDMS 05/24 17:36 Order name: XRAY Chest (1 view); Complete Time: 19:19 sb4 05/24 17:36 Order name: Head Brain Wo Cont CT; Complete Time: 18:34 sb4 05/24 17:36 Order name: EKG; Complete Time: 17:48 sb4 05/24 17:36 Order name: Cardiac monitoring; Complete Time: 17:39 sb4 05/24 17:36 Order name: EKG - Nurse/Tech; Complete Time: 17:50 sb4 05/24 17:36 Order name: IV Saline Lock; Complete Time: 18:20 sb4 05/24 17:36 Order name: Labs collected and sent; Complete Time: 18:20 sb4 05/24 17:36 Order name: O2 Per Protocol; Complete Time: 17:39 sb4 05/24 17:36 Order name: O2 Sat Monitoring; Complete Time: 17:39 sb4 05/24 17:36 Order name: Orthostatics; Complete Time: 18:20 sb4 EC/18 18:36 Rate is 70 beats/min. Rhythm is regular, Normal Sinus Rhythm. NV interval is normal at sb4 158 msec. QRS interval is normal at 82 msec. QT interval is normal at [address] changes noted. Clinical impression: No evidence of ischemia. Interpreted by me. Reviewed by me. Administered Medications: 19:49 Drug: NS 0.9% IV 1000 ml IV at 1 bolus Per protocol; 1000 mL bolus Route: IV; Rate: 1 lg3 bolus; Site: left antecubital; 20:19 Follow up: IV Status: Completed infusion; IV Intake: 1000ml bp Disposition Summary: 05/24/23 19:51 Discharge Ordered Notes: Location: Home sb4 Problem: new sb4 Symptoms: have improved sb4 Condition: Stable sb4 Diagnosis - Hypothyroidism, unspecified sb4 - Dizziness and giddiness sb4 Followup: sb4 - With: Adama Michael MD - When: 1 week - Reason: Recheck today's complaints, Re-evaluation by your physician Discharge Instructions: - Discharge Summary Sheet sb4 - Hypothyroidism sb4 - Dizziness, Zskr-[id number]-Flap sb4 Forms: - Medication Reconciliation Form sb4 - Thank You Letter sb4 - Antibiotic Education sb4 - Prescription Opioid Use sb4 - Patient Portal Instructions sb4 - Leadership Thank You Letter sb4 Prescriptions: - Meclizine 25 mg Oral Tablet - take 1 tablet ORAL route every 8 hours As needed; 30 tablet; Refills: 0, sb4 Product Selection Permitted Signatures: Dispatcher [employer] Vanessa Brokos RN RN lg3 Siria Rodriguez PA-C PAKaty sb4 Keith, Kylee Francois RN RN mb9 Jonathan Milton RN bp Corrections: (The following items were deleted from the chart) 17:37 17:33 Home Meds: losartan-hydrochlorothiazide 100-25 mg oral tablet; mb9 mb9 05/25 02:46 02:24 Associated signs and symptoms: Pertinent negatives: nausea, near-syncope, sb4 shortness of breath, sb4
--- NOTE | 2023-05-24 19:51 | ER ---
Nurse's Notes [facility] Name: Jane Cordova Age: 58 yrs Sex: Female : 1965 Arrival Date: 05/24/2023 Time: 17:14 Bed 5 Private MD: Diagnosis: Hypothyroidism, unspecified;Dizziness and giddiness Presentation: 05/24 17:32 Chief complaint: Patient states: "Ever since Monday, I get dizzy spells while sitting mb9 and feels like the room is spinning. My vision is blurry and I started feeling nauseous today". Coronavirus screen: Vaccine status: Patient reports receiving the 2nd dose of the covid vaccine. Ebola Screen: No symptoms or risks identified at this time. Initial Sepsis Screen: Does the patient meet any 2 criteria? No. Patient's initial sepsis screen is negative. Does the patient have a suspected source of infection? No. Patient's initial sepsis screen is negative. Risk Assessment: Do you want to hurt yourself or someone else? Patient reports no desire to harm self or others. Onset of symptoms was 2022. 17:32 Method Of Arrival: Wheelchair mb9 17:32 Acuity: DORITA 3 mb9 Triage Assessment: 19:00 General: Appears in no apparent distress. obese, Behavior is calm, cooperative, bp appropriate for age. Neuro: Reports dizziness. Historical: - Allergies: 17:33 Metformin HCl; mb9 17:33 IV contrast; mb9 17:33 Phenergan; mb9 - Home Meds: 17:33 losartan-hydrochlorothiazide 100-25 mg Oral tab 1 tab once daily [Active]; Jardiance 25 mb9 mg oral tablet [Active]; pravastatin 40 mg oral tablet [Active]; Decara oral [Active]; hyoscyamine sulfate 0.125 mg SL Tablet, Sublingual [Active]; levothyroxine oral [Active]; - PMHx: 17:33 Asthma; Hypertension; Hypothyroidism; Diverticulitis; Diabetes - NIDDM; Cirrhosis; mb9 - PSHx: 17:33 Cholecystectomy; mb9 - Immunization history:: Adult Immunizations up to date. - Social history:: Smoking status: Patient reports the use of cigarette tobacco products, smokes one pack cigarettes per day. Screenin:24 [facility] ED Fall Risk Assessment (Adult) Score/Fall Risk Level 0 - 2 = Low Risk nj1 Oriented to surroundings, Maintained a safe environment, Hourly rounding (assess needs \\T\\ fall precautionary measures) done. Abuse screen: Denies threats or abuse. Denies injuries from another. Nutritional screening: No deficits noted. Tuberculosis screening: No symptoms or risk factors identified. Assessment: 17:45 General: Appears in no apparent distress. uncomfortable, Behavior is calm, cooperative, nj1 appropriate for age. Pain: Complains of pain in left upper quadrant Pain currently is 3 out of 10 on a pain scale. Quality of pain is described as crampy. Neuro: Level of Consciousness is awake, alert, obeys commands, Oriented to person, place, time, situation, Denies blurred vision dizziness. 17:45 Cardiovascular: Patient's skin is warm and dry. Rhythm is regular. Respiratory: No nj1 deficits noted. Airway is patent Respiratory effort is even, unlabored. GI: Reports upper abdominal pain, Patient currently denies nausea. 18:59 Reassessment: No changes from previously documented assessment. Patient is alert, bp oriented x 3, equal unlabored respirations, skin warm/dry/pink. RECD REPORT FROM NITIN PENNY. 19:52 Reassessment: DC ON HOLD FOR IVF. bp Vital Signs: 17:32 BP 141 / 75; Pulse 79; Resp 16; Temp 98.4; Pulse Ox 97% on R/A; Weight 105.69 kg; mb9 Height 5 ft. 7 in. ; 17:52 BP 116 / 58 Supine; Pulse 72; nj1 17:52 BP 130 / 77 Sitting; Pulse 70; nj1 18:59 BP 126 / 72; Pulse 72; Resp 16; Pulse Ox 95% ; bp 19:52 BP 117 / 73; Pulse 67; Resp 13; Pulse Ox 95% ; bp 20:18 BP 120 / 69; Pulse 69; Resp 16; Pulse Ox 95% ; bp 17:32 Body Mass Index 36.49 (105.69 kg, 170.18 cm) mb9 17:52 Pt complained of dizzines, room spining when she sat up, this RN assits patient by nj1 holding hand. Standing vital signs deferred at this time. ED Course: 17:21 Patient arrived in ED. mg5 17:23 Siria Rodriguez PA-C is PHCP. sb4 17:23 Jeremie Fox MD is Attending Physician. sb4 17:31 Abeba Sanchez, RN is Primary Nurse. ko1 17:32 Arm band placed on. mb9 17:33 Triage completed. mb9 18:00 Inserted saline lock: 22 gauge in left antecubital area, using aseptic technique. Blood nj1 collected. 18:06 Head Brain Wo Cont CT In Process Unspecified. EDMS 18:16 XRAY Chest (1 view) In Process Unspecified. EDMS 18:24 Patient has correct armband on for positive identification. Bed in low position. Call nj1 light in reach. Side rails up X 1. Provided Education on: call light, fall precautions. 19:50 Adama Michael MD is Referral Physician. sb4 20:18 No provider procedures requiring assistance completed. IV discontinued, intact, bp bleeding controlled, No redness/swelling at site. Pressure dressing applied. Administered Medications: 19:49 Drug: NS 0.9% IV 1000 ml IV at 1 bolus Per protocol; 1000 mL bolus Route: IV; Rate: 1 lg3 bolus; Site: left antecubital; 20:19 Follow up: IV Status: Completed infusion; IV Intake: 1000ml bp Medication: 20:18 VIS not applicable for this client. bp Intake: 20:19 IV: 1000ml; Total: 1000ml. bp Outcome: 19:51 Discharge ordered by MD. sb4 20:18 Discharged to home ambulatory, bp 20:18 Condition: stable 20:18 Discharge instructions given to patient, Instructed on discharge instructions, follow up and referral plans. medication usage, Demonstrated understanding of instructions, follow-up care, medications, Prescriptions given X 1, 20:19 Patient left the ED. bp Signatures: Dispatcher [employer] EDMS Jonathan Milton, RN RN bp Vanessa Trammell, RN RN lg3 Abeba Sanchez, RN RN ko1 Siria Rodriguez, PA-C PA-C sb4 Kylee Parker RN RN mb9 Nitin Hawkins RN RN robbin1 June Parish mg5 Corrections: (The following items were deleted from the chart) 17:37 17:33 Home Meds: losartan-hydrochlorothiazide 100-25 mg oral tablet; bridgette mb9
[2023-05-24] MEDS ORDERED: NA CHLORIDE 0.9% 1,000 ML ONE (19:52)
[2023-05-24 22:52] VITALS: TEMP 98.4
[2023-05-24 22:55] VITALS: O2SAT 95
[2023-05-24 22:57] VITALS: BP 120/69
--- NOTE | 2023-05-25 13:38 | EKG ---
Test Date: 2023-05-24 Test Time: 17:47:03 Lieutenant General: TAMIKO MEASUREMENT RESULTS: Intervals: Rate: 70 IA: 158 QRSD: 82 QT: 418 QTc: 451 [place]: P: 75 IA: 158 QRS: 19 T: 38 INTERPRETIVE STATEMENTS: Normal sinus rhythm Cannot rule out Inferior infarct, age undetermined Cannot rule out Anterior infarct, age undetermined Abnormal ECG Compared to ECG 05/18/2021 04:51:29 Myocardial infarct finding now present Electronically Signed On 05-25-23 13:36:20 CDT by Joe Nash
== END 2023-05-24 20:19 | disposition home or self-care (01) ==
LOC: ER 17:14
DX: R42 Dizziness and giddiness (principal); E03.9 Hypothyroidism, unspecified; E11.9 Type 2 diabetes mellitus without complications; I10 Essential (primary) hypertension; Z88.8 Allergy status to other drugs, medicaments and biological substances; Z91.041 Radiographic dye allergy status
CPT/HCPCS: 85025; 80048; 36415; 83735; 85610; 80076; 84443; 84484; 84439; 83880; 70450; 71045; J7030; 93005